=== PATIENT | male | born 1965 | race Caucasian/White ===

== ENCOUNTER 2018-10-15 09:43 | Inpatient (IN) | payer BC, OTHER ==
[~2018-10-15] VITALS: Ht 177.8 cm; Wt 110.7 kg
[2018-10-15] VITALS (20 sets, daily range): BP systolic 91–143; BP diastolic 56–93
--- OUTSIDE RECORDS SUMMARY | 2018-10-15 09:47 | XMS REPORT | Continuity of Care Document ---
Author Author [facility] Organization [facility] Address Unknown Phone Unavailable Allergies Active Description Code Type Severity Reaction Onset Reported/Identified Relationship to Patient Clinical Status Yes No Allergy Information Available [id number] Drug Allergy Unknown N/A 2015 Medications There is no data. 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 Results There is no data. Encounters ACCT No. Visit Date/Time Discharge Status Pt. Type Provider Facility Loc./Unit Complaint [id number] 05/04/2016 20:05:00 05/05/2016 05:55:00 DIS Outpatient JAMESON MCCRACKEN CHIEF DIGITAL OFFICER [facility] SLEEP NARCOLEPSY, EXCESSIVE DAYTIME SLEEPNESS [id number] 02/03/2016 10:05:00 02/03/2016 23:59:59 CLS Outpatient JAMESON MCCRACKEN CHIEF DIGITAL OFFICER [facility] RAD VERTIGO [id number] 03/01/2015 12:05:00 03/01/2015 13:01:00 DIS Outpatient LISA GIRALDO, GENOVEVA Patel [facility] CARD DDD LUMBAR
--- NOTE | 2018-10-15 09:48 | NUR ---
ATTEMPT VAGAL'S BY BEARING DOWN, HOLDING BREATH, AND BLOWING INTO A SYRNIGE. CONTINUES TO BE IN HIGH RATE OF 220.
[2018-10-15] MEDS ORDERED: ADENOSINE 6 MG/2 ML (ADENOCARD) VIAL IV ONE ×4 (09:50→10:30)
--- NOTE | 2018-10-15 09:52 | NUR ---
ADENOSINE 6MG GIVEN RAPID THRU IV PUSH. NO CHANGE IN CONDTION AFTER MED GIVEN.
--- NOTE | 2018-10-15 09:56 | NUR ---
ADENOSINE 12MG IV GIVEN RAPIDLY. NO CHANGE IN VITALS AFTER MED GIVEN.
[2018-10-15] MEDS ORDERED: NS IV 1000 ML 1,000 ML ONE (09:57)
[2018-10-15] MEDS ORDERED: ASPIRIN 81 MG CHEW (CHILDREN'S ASA) PO ONE (10:00)
[2018-10-15] MEDS ORDERED: AMIODARONE (OMNICELL DRIP KIT) 150 MG/3 ML IV ONE (10:06)
[2018-10-15] MEDS ORDERED: AMIODARONE 450 MG/9 ML (CORDARONE) VIAL IV ONE (10:06)
[2018-10-15] MEDS ORDERED: D5W IV SOLUTION (EXCEL) 250 ML IV ONE (10:07)
[2018-10-15] MEDS ORDERED: D5W 100 ML IVPB 100 ML IV ONE (10:07)
[2018-10-15 10:08] LABS: BASOPHILS % (AUTO) 1 % (0-10); EOSINOPHILS # (AUTO) 0.1 10^3/uL (0.0-0.3); EOSINOPHILS % (AUTO) 2 % (0-10); HEMATOCRIT 48 % (40-54); HEMOGLOBIN 17.2 G/DL (13.3-17.7); LYMPHOCYTES % (AUTO) 35 % (12-44); MEAN CORPUSCULAR HEMOGLOBIN 31 PG (25-34); MEAN CORPUSCULAR HGB CONC 36 G/DL (32-36); MEAN CORPUSCULAR VOLUME 85 FL (80-99); MEAN PLATELET VOLUME 10.3 FL (7.4-10.4); MONOCYTES # (AUTO) 0.7 X 10^3 (0.0-1.0); MONOCYTES % (AUTO) 12 % (0-12); NEUTROPHILS % (AUTO) 50 % (42-75); PLATELET COUNT 188 10^3/uL (130-400); RED CELL DISTRIBUTION WIDTH 13.1 % (10.0-14.5); WHITE BLOOD COUNT 5.9 10^3/uL (4.3-11.0)
--- NOTE | 2018-10-15 10:13 | NUR ---
BACK IN ROOM TALKING TO PT.
[2018-10-15] MEDS ORDERED: AMIODARONE INJECTION 450 MG in D5W IV SOLUTION (EXCEL) 250 ML IV SCH ×2 (10:15→13:45)
[2018-10-15] MEDS ORDERED: AMIODARONE FOR BOLUS 150 MG in D5W 100 ML IVPB 100 ML IV ONE (10:15)
[2018-10-15] MEDS ORDERED: NS IV 1000 ML 1,000 ML IV SCH ×3 (10:18→11:25)
--- NOTE | 2018-10-15 10:20 | NUR ---
DR TALKING WITH DR MARCOS ON PHONE AT THIS TIME.
--- NOTE | 2018-10-15 10:21 | NUR ---
DR MARCOS TALKING TO PT AT THIS TIME.
[2018-10-15] MEDS ORDERED: proPOfol 200 MG/20 ML (DIPRIVAN) VIAL IV ONE (10:22)
[2018-10-15 10:23] LABS: PROTHROMBIN TIME PATIENT 12.9 SEC (12.2-14.7)
--- NOTE | 2018-10-15 10:24 | NUR ---
CONCENT SIGNED FOR CONSCIOUS SEDATION AND CARDIOVERSION/DEFIBRILLATION.
--- NOTE | 2018-10-15 10:27 | NUR ---
PROPOFOL 50MG GIVEN IVP BY DR ELLIS.
--- NOTE | 2018-10-15 10:30 | NUR ---
PT STILL AWAKE ET PROPOFOL 25MG IVP GIVEN BY DR ELLIS.
[2018-10-15 10:31] LABS: ALANINE AMINOTRANSFERASE 67 U/L (0-55); ALBUMIN 4.5 GM/DL (3.2-4.5); ALKALINE PHOSPHATASE 89 U/L (40-136); BILIRUBIN,TOTAL 0.9 MG/DL (0.1-1.0); BUN/CREATININE RATIO 11; CALCIUM 9.3 MG/DL (8.5-10.1); CARBON DIOXIDE 23 MMOL/L (21-32); CHLORIDE 104 MMOL/L (98-107); GFR ESTIMATED > 60; GLUCOSE 104 MG/DL (70-105); MAGNESIUM 2.3 MG/DL (1.8-2.4); POTASSIUM 3.6 MMOL/L (3.6-5.0); SODIUM 139 MMOL/L (135-145)
--- NOTE | 2018-10-15 10:32 | NUR ---
PT REMAINS AWAKE. PROPOFOL 50MG IVP GIVEN BY DR ELLIS.
--- NOTE | 2018-10-15 10:33 | NUR ---
CARDIOVERSTION WITH SYNC AT 120J. NO CHANGE IN PULSE.
--- NOTE | 2018-10-15 10:35 | NUR ---
ZOLL PADS CHANGED. CARDIOVERSION WITH SYNC AT 200J GIVEN. NO CHANGE IN VITALS.
[2018-10-15 10:37] LABS: MYOGLOBIN SERUM 49.6 NG/ML (10.0-92.0)
--- NOTE | 2018-10-15 10:39 | NUR ---
CARDIOVERSION WITH SYNC AT 200J GIVEN. NO CHANGE IN PULSE. PULSE REMAINS 203 AND SVT ET RULE OUT VTACH.
--- NOTE | 2018-10-15 10:41 | NUR ---
BP 84/[address] AWARE.
--- NOTE | 2018-10-15 10:42 | NUR ---
PRESSURE BAG TO FLUIDS.
[2018-10-15] MEDS ORDERED: KETAMINE HCL 100 MG/ML 5 ML VIAL ONE (10:43)
[2018-10-15] MEDS ORDERED: ESMOLOL DRIP PREMIX 250 ML IV SCH ×2 (10:45→12:30)
[2018-10-15] MEDS ORDERED: KETAMINE HCL 100 MG/ML 5 ML VIAL IM ONE (10:45)
--- NOTE | 2018-10-15 10:47 | NUR ---
PT ALERT ET AWAKE AND TALKING. PULSE REMAINS 206 ET BP 94/69.
[2018-10-15] MEDS ORDERED: ONDANSETRON 4 MG/2 ML (SDV) Z0FRAN ONE (10:53)
--- NOTE | 2018-10-15 10:53 | NUR ---
LIDOCAINE 150MG IV GIVEN PER DR MARCOS ORDER.
--- NOTE | 2018-10-15 10:54 | NUR ---
CARDIOVESION WITH SYNC AT 200J GIVEN.
--- NOTE | 2018-10-15 10:56 | NUR ---
PT CYANOTIC. RT GIVING OXYGEN VIA BVM.
--- NOTE | 2018-10-15 11:01 | NUR ---
PT REMAINS SEDATED. BEING BAGGED VIA BVM AT THIS TIME. DR MARCOS AND CALEB DISCUSSING PT.
--- NOTE | 2018-10-15 11:02 | NUR ---
1101 ESMOLOL 50MG BOLUS GIVEN OUT THE ESMOLOL DRIP BAG.
--- NOTE | 2018-10-15 11:03 | NUR ---
ESMOLOL DRIP AT 33ML/HR 50 MCG/KG/ MIN STARTED.
--- NOTE | 2018-10-15 11:08 | NUR ---
BROUGHT INTO ROOM.
--- NOTE | 2018-10-15 11:10 | NUR ---
Contacted , accompanied her to bedside , spent time with her in consult room, offered support and prayer.
--- NOTE | 2018-10-15 11:11 | NUR ---
ETOMIDATE 20MG IV GIVEN.
--- NOTE | 2018-10-15 11:11 | NUR ---
PULSE OX 91% WITH BMV. DR ELLIS IN ROOM TO INTUBATE.
--- NOTE | 2018-10-15 11:12 | NUR ---
SUCCINYLCHOLINE 100MG IV GIVEN IN PREP OF INTUBATION.
--- NOTE | 2018-10-15 11:14 | NUR ---
VERSED 2.5MG AND FENTENLY 50MCG GIVEN PER DR ELLIS VERBAL ORDER.
--- NOTE | 2018-10-15 11:15 | NUR ---
POSITIVE COLOR CHANGE IN TUBE AFTER ET TUBE PLACED. RADIOLOGY CONTACTED FOR X-RAY.
--- NOTE | 2018-10-15 11:18 | NUR ---
AMIODORONE AND ESMOLOL STOPPED PER DR GRAHAM. DR BRANTLEY BEING CONTACTED. PULSE OX 71% TUBED, END TITAL 19, PULSE 163, BP 72/35. DR ELLIS IN ROOM ET GIVING ORDERS FOR ALL.
--- NOTE | 2018-10-15 11:21 | NUR ---
DR BRANTLEY IN ROOM AT THIS TIME TALKING WITH CALEB.
[2018-10-15] MEDS ORDERED: NS (IVPB) 250 ML ONE (11:22)
[2018-10-15] MEDS ORDERED: NOREPINEPHRINE 4 MG/4 ML (LEVOPHED) AMP IV ONE (11:22)
--- NOTE | 2018-10-15 11:25 | NUR ---
LEVOPHED STARTED AT 5MCG/MIN OR 19.1 ML/HR
[2018-10-15] MEDS ORDERED: DEXMEDETOMIDINE 200 MCG/2 ML (PRECEDEX) VIAL IV ONE (11:29)
[2018-10-15] MEDS ORDERED: NS (IVPB) 50 ML ONE (11:29)
--- NOTE | 2018-10-15 11:30 | NUR ---
PULSE OX 79% INTUBATED, BP 86/57. DR ELLIS AND DR BRANTLEY IN ROOM AT THIS TIME.
--- NOTE | 2018-10-15 11:30 | NUR ---
16F NG PLACED BY CORNELIO Brunner RN. POSITIVE AIR BOLUS HEARD.
--- NOTE | 2018-10-15 11:31 | NUR ---
RT SUCTIONING AT THIS TIME.
--- NOTE | 2018-10-15 11:31 | NUR ---
BP 100/76 PULSE OX 79%. BOTH DR'S IN ROOM AT THIS TIME. FLUID CHANGED TO SLOW DRIP.
[2018-10-15] MEDS ORDERED: NS (IVPB) 100 ML ONE (11:37)
[2018-10-15] MEDS ORDERED: DIGOXIN 0.25 MG/ML (LANOXIN) 2 ML AMP ONE (11:37)
[2018-10-15] MEDS ORDERED: DILTIAZEM 125 MG/25 ML IV (CARDIZEM) IV ONE (11:39)
[2018-10-15] MEDS ORDERED: FUROSEMIDE 40 MG/4 ML INJ (LASIX) ONE (11:41)
--- NOTE | 2018-10-15 11:41 | Diagnostic Imaging Report ---
INDICATION: Evaluate tube placement. FINDINGS: The endotracheal tube is in satisfactory position. There is cardiomegaly. There is bilateral airspace disease. There is no pleural effusion or pneumothorax. The mediastinum is unremarkable. IMPRESSION: Diffuse bilateral airspace disease. Cardiomegaly. Endotracheal tube in satisfactory position Dictated by: Dictated on workstation # [id number]
[2018-10-15] MEDS ORDERED: PROPOFOL DRIP (ICU) 100 ML IV ONE ×3 (11:44→21:48)
[2018-10-15] MEDS ORDERED: FUROSEMIDE 40 MG/4 ML INJ (LASIX) IVP ONE (11:45)
[2018-10-15] MEDS ORDERED: DIGOXIN 0.25 MG/ML (LANOXIN) 2 ML AMP IV ONE (11:45)
--- NOTE | 2018-10-15 11:45 | NUR ---
LEVOPHED STOPPED PER DR ORDER.
--- NOTE | 2018-10-15 11:45 | NUR ---
CARDIZEM STARTED AT 5MCG/HR. Addendum: 10/15/18 at 1245 by SHALINI ESMOLOL STOPPED PER DR GRAHAM
[2018-10-15] MEDS: DEXMEDETOMIDINE INJECTION 200 MCG in NS (IVPB) 50 ML IV SCH ×2 (11:47→13:45)
--- NOTE | 2018-10-15 11:47 | NUR ---
PARESIDEX STARTED AT 41.6ML/HR.
--- NOTE | 2018-10-15 11:49 | NUR ---
VERSED 2.5MG AND FENTENLY 50MCG GIVEN IV PER DR ORDER.
--- NOTE | 2018-10-15 11:49 | NUR ---
PROPOFOL 20MCG/HR STARTED.
[2018-10-15 11:52] LABS: BILIRUBIN,URINE NEGATIVE (NEGATIVE); CLARITY,URINE CLEAR; COLOR,URINE YELLOW; GLUCOSE, URINE (UA) NEGATIVE (NEGATIVE); KETONES,URINE NEGATIVE (NEGATIVE); LEUKOCYTE ESTERASE ,URINE NEGATIVE (NEGATIVE); NITRITE,URINE NEGATIVE (NEGATIVE); PH,URINE 6 (5-9); PROTEIN,URINE 2+ (NEGATIVE); UROBILINOGEN,URINE NORMAL (NORMAL)
--- NOTE | 2018-10-15 11:57 | NUR ---
91/59 HR 172, SAT 87%.
--- NOTE | 2018-10-15 11:57 | NUR ---
LEVOPHED 5CG/MIN RESTARTED PER DR ORDER.
[2018-10-15 12:01] LABS: ABG BASE EXCESS -6.3 MMOL/L (-2.5-2.5); ABG OXYGEN SATURATION 84 % (94-100); ABG PCO2 52 MMHG (35-45); ABG PO2 59 MMHG (79-93)
[2018-10-15 12:03] LABS: AMPHETAMINE SCREEN, URINE NEGATIVE (NEGATIVE); BARBITURATE SCREEN URINE NEGATIVE (NEGATIVE); BENZODIAZEPINES SCREEN URINE NEGATIVE (NEGATIVE); CANNABINOID SCREEN, URINE NEGATIVE (NEGATIVE); COCAINE SCREEN URINE NEGATIVE (NEGATIVE); METHADONE STAT NEGATIVE (NEGATIVE); METHAMPHETAMINE SCREEN URINE S NEGATIVE (NEGATIVE); OPIATE SCREEN URINE NEGATIVE (NEGATIVE); OXYCODONE STAT NEGATIVE (NEGATIVE); PROPOXYPHENE STAT NEGATIVE (NEGATIVE); TRICYCLIC ANTIDEPRESSANTS SCRE NEGATIVE (NEGATIVE)
--- NOTE | 2018-10-15 12:03 | NUR ---
AMIODORONE DRIP STARTED AT 33ML/HR.
[2018-10-15 12:04] LABS: ABG PH 7.21 (7.37-7.43); ALLENS TEST YES-POS
--- NOTE | 2018-10-15 12:04 | NUR ---
DR ELLIS IN ROOM STARTING CENTRAL LINE AT THIS TIME. DR BRANTLEY IN ROOM AT THIS TIME ALSO.
[2018-10-15 12:05] LABS: INSPIRED O2 SEE SPECIMEN COMMENT; PATIENT TEMP 97.9; VENTILATOR NO
[2018-10-15 12:07] LABS: BACTERIA,URINE NEGATIVE /HPF
--- NOTE | 2018-10-15 12:07 | NUR ---
HR HAS CONVERTED TO SINUS AT 83, SAT 89% ET 73/46
--- NOTE | 2018-10-15 12:07 | NUR ---
DR IGNACIO IN ROOM AT THIS TIME.
--- NOTE | 2018-10-15 12:08 | NUR ---
LEVOPHED INCREASED TO 10MCG
--- NOTE | 2018-10-15 12:09 | NUR ---
2 AMPS OF SODIUM BICARB GIVEN PER DR BRANTLEY STANDING ORDER.
--- NOTE | 2018-10-15 12:25 | NUR ---
DR TOMLINSON HERE.
[2018-10-15] MEDS ORDERED: DILTIAZEM INJECTION 125 MG in NS (IVPB) 100 ML IV SCH (12:30)
[2018-10-15] MEDS ORDERED: PROPOFOL INJECTION 50 ML IV SCH (12:30)
[2018-10-15] MEDS ORDERED: DEXMEDETOMIDINE INJECTION 200 MCG in NS (IVPB) 50 ML IV SCH ×2 (12:30→13:45)
[2018-10-15] MEDS ORDERED: PROPOFOL DRIP (ICU) 100 ML IV SCH (12:30)
--- NOTE | 2018-10-15 12:30 | ED Chest Pain ---
General Chief Complaint: Cardiac/General Problems Stated Complaint: CHEST PAIN Nursing Triage Note: ARRIVED VIA AMB FROM WORK. 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 Nursing Sepsis Screen: No Definite Risk Source: patient Exam Limitations: no limitations History of Present Illness Date Seen by Provider: Oct 15, 2018 Time Seen by Provider: 09:48 Initial Comments Here with report of palpitations and central chest pain that started approximately 20 minutes prior to arrival at about 0930. He felt the acute onset of the rapid heart rate and talk to his coworker who brought him here to the emergency department. He reports that several years ago he had similar episode in which she had tachycardia of the lower part of his heart. He states that they had to shock him a few times and that did not work and he ended up on medicines. He had a failed ablation at that time and it was in [place]. He's had a few episodes in the interim but it usually resolves on its own. Today he has persistence of symptoms. Denies nausea, vomiting, weakness or breathing problems. 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 SERVICE TECHNICIAN: No Associated Symptoms: No abdominal pain, No back pain, No diaphoresis, No fever/ chills, No nausea/vomiting; shortness of breath Allergies and Home Medications Allergies Coded Allergies: No Allergy Information Available (Unverified , 02/03/16) Home Medications Diltiazem HCl 240 Mg Cap.er.24h, 240 MG PO DAILY, (Reported) Pantoprazole Sodium 40 Mg Tablet.dr, 40 MG PO DAILY, (Reported) Patient Home Medication List Home Medication List Reviewed: Yes Review of Systems Review of Systems Constitutional: see HPI EENTM: No Symptoms Reported Respiratory: See HPI Cardiovascular: See HPI, Chest Pain, Palpitations; Denies Syncope Gastrointestinal: No Symptoms Reported Genitourinary: No Symptoms Reported Musculoskeletal: no symptoms reported Skin: no symptoms reported All Other Systems Reviewed Negative Unless Noted: Yes Past Lverxbq-Mirofx-Xzsdag Hx Past Med/Social Hx: Reviewed Nursing Past Med/Soc Hx Patient Social History Alcohol Use: Occasionally Uses Recreational Drug Use: Yes Drug of Choice: POT Smoking Status: Never a Smoker Recent Foreign Travel: No Contact w/Someone Who Travel: No Recent Infectious Disease Expo: No Recent Hopitalizations: No Past Medical History Surgeries: Yes Appendectomy, Gallbladder Respiratory: No Cardiac: Yes (SVT) Hypertension Neurological: No Concussion Genitourinary: No Gastrointestinal: No Endocrine: No HEENT: No Cancer: No Psychosocial: No Integumentary: No Family Medical History Reviewed Nursing Family Hx No Pertinent Family Hx Physical Exam Vital Signs Vital Signs - First Documented 10/15/18 10/15/18 09:45 10:05 Temp 98.0 Pulse 213 Resp 18 B/P (MAP) 158/107 (124) Pulse Ox 94 O2 Delivery Room Air O2 Flow Rate 2.00 Capillary Refill : Less Than 3 Seconds Height, Weight, BMI Height: 5'10.00" Weight: 245lbs. oz. 111.051656nz; BMI Method:Stated General Appearance: No Apparent Distress, WD/WN HEENT: PERRL/EOMI, Pharynx Normal Neck: Non Tender, Supple Respiratory: Lungs Clear, Normal Breath Sounds Cardiovascular: No Murmur, Tachycardia Gastrointestinal: Non Tender, Soft Extremity: Normal Range of Motion, Non Tender Neurologic/Psychiatric: Alert, Oriented x3 Skin: Normal Color, Warm/Dry Procedures/Interventions Lumen: triple Central Line Procedure: betadine prep, sterile drapes applied, sterile dressing applied Position: internal jugular (R) Complications: none Post Position: sutured, good blood return, position confirmed w/ CXR Central line placed via ultrasound guidance times one stick with no complications. Seldinger technique used. Date of ETT Placement: Oct 15, 2018 Time of ETT Placement: 1115 Tube Size: 7.50 Medications: Etomidate, Succinylcholine Positive End Tide CO2: Yes Breath Sounds after Intubation: bilateral-equal Intubation Complications: no complications Post Intubation Xray: Yes Intubated due to underlying conditions with declining O2 saturation secondary to the tach that is unstable and resistant to cardioversion. Airway is deep. Placed via video scope without much difficulty. O2 sat slowly edelmira afterwards. Verified by breath sounds and positive end-tidal CO2 as well as x-ray. Critical Care Note Critical Care Start Time: 09:48 Stop Time: 12:30 Total Time (minutes) 90 Progress/Results/Core Measures Results/Orders Lab Results Laboratory Tests Test 10/15/18 09:54 10/15/18 11:06 3/12/19 11:55 Range/Units White Blood Count 5.9 4.3-11.0 10^3/uL Red Blood Count 5.63 4.35-5.85 10^6/uL Hemoglobin 17.2 13.3-17.7 G/DL Hematocrit 48 40-54 % Mean Corpuscular Volume 85 80-99 FL Mean Corpuscular Hemoglobin 31 25-34 PG Mean Corpuscular Hemoglobin Concent 36 32-36 G/DL Red Cell Distribution Width 13.1 10.0-14.5 % Platelet Count 188 130-400 10^3/uL Mean Platelet Volume 10.3 7.4-10.4 FL Neutrophils (%) (Auto) 50 42-75 % Lymphocytes (%) (Auto) 35 12-44 % Monocytes (%) (Auto) 12 0-12 % Eosinophils (%) (Auto) 2 0-10 % Basophils (%) (Auto) 1 0-10 % Neutrophils # (Auto) 3.0 1.8-7.8 X 10^3 Lymphocytes # (Auto) 2.0 1.0-4.0 X 10^3 Monocytes # (Auto) 0.7 0.0-1.0 X 10^3 Eosinophils # (Auto) 0.1 0.0-0.3 10^3/uL Basophils # (Auto) 0.0 0.0-0.1 10^3/uL Prothrombin Time 12.9 12.2-14.7 SEC INR Comment 1.0 0.8-1.4 Activated Partial Thromboplast Time 29 24-35 SEC Sodium Level 139 135-145 MMOL/L Potassium Level 3.6 3.6-5.0 MMOL/L Chloride Level 104 98-107 MMOL/L Carbon Dioxide Level 23 21-32 MMOL/L Anion Gap 12 5-14 MMOL/L Blood Urea Nitrogen 12 7-18 MG/DL Creatinine 1.10 0.60-1.30 MG/DL Estimat Glomerular Filtration Rate > 60 BUN/Creatinine Ratio 11 Glucose Level 104 70-105 MG/DL Calcium Level 9.3 8.5-10.1 MG/DL Corrected Calcium 8.9 8.5-10.1 MG/DL Magnesium Level 2.3 1.8-2.4 MG/DL Total Bilirubin 0.9 0.1-1.0 MG/DL Aspartate Amino Transf (AST/SGOT) 40 H 5-34 U/L Alanine Aminotransferase (ALT/SGPT) 67 H 0-55 U/L Alkaline Phosphatase 89 40-136 U/L Myoglobin 49.6 10.0-92.0 NG/ML Troponin I < 0.028 <0.028 NG/ML Total Protein 8.0 6.4-8.2 GM/DL Albumin 4.5 3.2-4.5 GM/DL Urine Color YELLOW Urine Clarity CLEAR Urine pH 6 5-9 Urine Specific [place] 1.010 L 1.016-1.022 Urine Protein 2+ H NEGATIVE Urine Glucose (UA) NEGATIVE NEGATIVE Urine Ketones NEGATIVE NEGATIVE Urine Nitrite NEGATIVE NEGATIVE Urine Bilirubin NEGATIVE NEGATIVE Urine Urobilinogen NORMAL NORMAL MG/DL Urine Leukocyte Esterase NEGATIVE NEGATIVE Urine RBC (Auto) NEGATIVE NEGATIVE Urine RBC NONE /HPF Urine WBC NONE /HPF Urine Squamous Epithelial Cells NONE /HPF Urine Crystals NONE /LPF Urine Bacteria NEGATIVE /HPF Urine Casts NONE /LPF Urine Mucus NEGATIVE /LPF Urine Culture Indicated NO Urine Opiates Screen NEGATIVE NEGATIVE Urine Oxycodone Screen NEGATIVE NEGATIVE Urine Methadone Screen NEGATIVE NEGATIVE Urine Propoxyphene Screen NEGATIVE NEGATIVE Urine Barbiturates Screen NEGATIVE NEGATIVE Ur Tricyclic Antidepressants Screen NEGATIVE NEGATIVE Urine Phencyclidine Screen NEGATIVE NEGATIVE Urine Amphetamines Screen NEGATIVE NEGATIVE Urine Methamphetamines Screen NEGATIVE NEGATIVE Urine Benzodiazepines Screen NEGATIVE NEGATIVE Urine Cocaine Screen NEGATIVE NEGATIVE Urine Cannabinoids Screen NEGATIVE NEGATIVE Blood Gas Puncture Site RT RAD Blood Gas Patient Temperature 97.9 Arterial Blood pH 7.21 *L 7.37-7.43 Arterial Blood Partial Pressure CO2 52 H 35-45 MMHG Arterial Blood Partial Pressure O2 59 L 79-93 MMHG Arterial Blood HCO3 20 L 23-27 MMOL/L Arterial Blood Total CO2 22.0 21.0-31.0 MMOL/L Arterial Blood Oxygen Saturation 84 L 94-100 % Arterial Blood Base Excess -6.3 L -2.5-2.5 MMOL/L Truong Test YES-POS Blood Gas Ventilator Setting NO Blood Gas Inspired Oxygen SEE SPECIMEN COMMENT My Orders Orders - SHERRI ELLIS MD Ekg Tracing (10/15/18 09:45) Cbc With Automated Diff (10/15/18 09:48) Magnesium (10/15/18 09:48) Chest 1 View, Ap/Pa Only (10/15/18 09:48) Cardiac Profile 1 (10/15/18 09:48) Comprehensive Metabolic Panel (10/15/18 09:48) Myoglobin Serum (10/15/18 09:48) Protime With Inr (10/15/18 09:48) Partial Thromboplastin Time (10/15/18 09:48) O2 (10/15/18 09:48) Monitor-Rhythm Ecg Trace Only (10/15/18 09:48) Lipid Panel (10/16/18 06:00) Aspirin Chewable Tablet (Baby Aspirin Ch (10/15/18 10:00) Saline Lock/Iv-Start (10/15/18 09:48) Adenosine Injection (Adenocard Injection (10/15/18 09:50) Adenosine Injection (Adenocard Injection (10/15/18 09:52) Ns Iv 1000 Ml (Sodium Chloride 0.9%) (10/15/18 09:57) Amiodarone For Bolus (Cordarone Bolus) (10/15/18 10:15) Amiodarone Injection (Cordarone Injectio (10/15/18 10:15) Amiodarone For Bolus (Cordarone Bolus) (10/15/18 10:06) Amiodarone Injection (Cordarone Injectio (10/15/18 10:06) D5w Iv Solution ([place]) (Dextrose 5% Federico (10/15/18 10:07) D5w 100 Ml Ivpb (Dextrose 5% Water Iv So (10/15/18 10:07) Adenosine Injection (Adenocard Injection (10/15/18 10:30) Adenosine Injection (Adenocard Injection (10/15/18 10:30) Saline Lock/Iv-Start (10/15/18 10:18) Ns Iv 1000 Ml (Sodium Chloride 0.9%) (10/15/18 10:18) Propofol Injection (Diprivan Injection) (10/15/18 10:22) Saline Lock/Iv-Start (10/15/18 10:36) Esmolol Drip Premix (Brevibloc Drip [place] (10/15/18 10:45) Ketamine Injection (Ketalar Injection) (10/15/18 10:45) Saline Lock/Iv-Start (10/15/18 10:43) Ns Iv 1000 Ml (Sodium Chloride 0.9%) (10/15/18 10:43) Ketamine Injection (Ketalar Injection) (10/15/18 10:43) Ondansetron Injection (Zofran Injectio (10/15/18 10:53) Ns (Ivpb) (Sodium Chloride 0.9%) (10/15/18 11:22) Norepinephrine (Levophed) (10/15/18 11:22) Saline Lock/Iv-Start (10/15/18 11:25) Ns Iv 1000 Ml (Sodium Chloride 0.9%) (10/15/18 11:25) Dexmedetomidine Injection (Precedex Inje (10/15/18 11:29) Ns (Ivpb) (Sodium Chloride 0.9% Ivpb Bag (10/15/18 11:29) Furosemide Injection (Lasix Injection) (10/15/18 11:45) Digoxin Injection (Lanoxin Injection) (10/15/18 11:45) Drug Screen Stat (Urine) (10/15/18 11:41) Ua Culture If Indicated (10/15/18 11:44) Propofol Drip (Icu) (Diprivan Drip (Icu) (10/15/18 11:44) Chest 1 View, Ap/Pa Only (10/15/18 12:24) Propofol Drip (10/15/18 12:30) Propofol Drip (Ed Only) 50ml (10/15/18 12:30) Sedation Communication Q48H (10/15/18 12:25) Esmolol Drip Premix (Brevibloc Drip [place] (10/15/18 12:30) Precedex Drip 200mcg/50ml (10/15/18 12:30) Cardizem Drip (10/15/18 12:30) Medications Given in ED Current Medications Medications Dose Ordered Sig/Allison Route Start Time Stop Time Status Last Admin Dose Admin Adenosine 6 mg ONCE ONCE IV 10/15/18 10:30 10/15/18 10:31 DC 10/15/18 09:52 6 MG Adenosine 12 mg ONCE ONCE IV 10/15/18 10:30 10/15/18 10:31 DC 10/15/18 09:52 12 MG Amiodarone HCl 150 mg/Dextrose 103 ml @ 600 mls/hr ONCE ONCE IV 10/15/18 10:15 10/15/18 10:25 DC 10/15/18 10:11 600 MLS/HR Aspirin 324 mg ONCE ONCE PO 10/15/18 10:00 10/15/18 10:01 DC 10/15/18 10:18 324 MG Digoxin 0.25 mg ONCE ONCE IV 10/15/18 11:45 10/15/18 11:46 DC 10/15/18 11:41 0.25 MG Furosemide 40 mg ONCE ONCE IVP 10/15/18 11:45 10/15/18 11:46 DC 10/15/18 11:40 40 MG Ketamine HCl PHARMACY TO DOSE ONCE ONCE IM 10/15/18 10:45 10/15/18 10:46 DC 10/15/18 10:52 150 MG Vital Signs/I&O 10/15/18 10/15/18 09:45 10:05 Temp 98.0 Pulse 213 Resp 18 B/P (MAP) 158/107 (124) Pulse Ox 94 O2 Delivery Room Air Nasal Cannula O2 Flow Rate 2.00 Blood Pressure Mean: 124 Progress Progress Note : Progress Note Seen and evaluated on arrival. Wide-complex tachycardia noted on monitor. IV, labs, EKG and chest x-ray ordered. ASA 324 mg by mouth ordered. Patient does have wide-complex tachycardia and we attempted adenosine 6 mg IV which failed and 12 mg IV which failed as well. This was at 0952 and 0958. Normal saline 1 L bolus ordered. 0959: I did discuss the case with Dr. Romero and he will come to the emergency department for evaluation of the patient as this appears to be ventricular tachycardia. Patient's blood pressure remains elevated and he is currently in no distress. Due to failure of adenosine, amiodarone 150 mg IV bolus ordered. I did discuss the case with Dr. Sinclair as well. 1026: We will do a synchronized cardioversion due to failure of meds and persistence of the wide- complex tachycardia which appears to be ventricular in origin. 1032: Patient has signed consent for conscious sedation and synchronized cardioversion. A total of 120 mg of propofol was given and a total of 3 boluses of 50, 20 and 50 mg respectively. Ultimately sedation was achieved. Synchronized cardioversion attempted at 120 J which failed. 1035: Repeat synchronized cardioversion at 200 J which failed. 103 9 repeat cardioversion at 200 J failed. Blood pressure noted to be declining. IV fluids continued. Third IV site initiated. We will attempt 1 more synchronized cardioversion but will use lidocaine prior to cardioversion. Due to patient's hypotension, we will avoid further propofol at this point. Ketamine will be used instead. Ketamine 150 mg IV was given and 150 mg of lidocaine was given. 1054 synchronized cardioversion at 200 J was attempted and failed. Patient very resistant to attempts at converting out of ventricular tachycardia and is becoming increasingly unstable with respect to blood pressure. In an attempt to lower heart rate we will initiate asthma wall with bolus of 500 mcg/kg IV which was calculated at 50 mg bolus which was given. Esmolol drip initiated at 1103. Patient becoming increasingly hypotensive and O2 saturations declining. Ultimately elected intubation to improve stability. This was done at 1115. Post chest x-ray and intubation shows tube in good position Dr. Moser called and to room at 1130. Dr. Romero still in room. I have discussed the concerns with the patient's . We have evaluated for transfer but patient is not stable enough for transfer and whether is limiting flight. Dr. Moser managing sedation with Precedex and propofol. 1158: We have tried variety of medication changes and vent settings to improve the patient's O2 saturations which have increased to 87%. Ultimately we elected for central line which I will place at this time. has been informed of situation. Levophed drip has been initiated to improve blood pressure 1207: Patient converted during central line procedure to sinus rhythm. 1215: Patient remains in sinus rhythm. Dr. Myrick at bedside and bedside report was given to her by me, Dr. Moser and Dr. Romero as the care team. 1230: Chest x-ray evaluation after central line shows central line in good position. NG tube is just into the stomach and advancement was ordered for further seating. Patient will go to ICU and further management will be via Dr. Moser, Dr. Romero and Dr. Myrick. I have updated on situation. Patient remains critical but stable with improving blood pressures and heart rate in the 60s. Repeat EKG has been done and shows sinus rhythm of 58. O2 saturations have improved into the mid to upper 90s. Vent settings per Dr. Moser. Dr. Sinclair is here now for electrophysiology consult and is talking with the . Admit, inpatient status to ICU, critical condition. Initial ECG Impression Date: Oct 15, 2018 Initial ECG Impression Time: 09:47 Initial ECG Rate: 208 Initial ECG Rhythm: V.Tach Comment Ventricular tachycardia with rate of 209. No previous available for comparison. Interpreted by me. Discussed with quality technician EKG #1: EKG Time: 11:32 Rate: 183 Rhythm: V.Tach Comment Ventricular tachycardia continues with rate of 183. Interpreted by me and discussed with quality technician. Essentially unchanged from previous earlier. EKG #2: EKG Time: 12:30 Rate: 58 Rhythm: Normal Sinus Comment Sinus rhythm with normal axis. No evidence of ST elevation [place]. Change from previous which was V. tach. Interpreted by me. Diagnostic Imaging Diagonstic Imaging: Xray Plain Films/CT/US/NM/MRI: chest Comments NAME: AISHA AVINA Mingly REC#: [id number] PT STATUS: REG ER : 1965 PHYSICIAN: SHERRI ELLIS MD ADMIT DATE: 10/15/18/ER Signed Date of Exam: 10/15/18 CHEST 1 VIEW, AP/PA ONLY INDICATION: Evaluate tube placement. FINDINGS: The endotracheal tube is in satisfactory position. There is cardiomegaly. There is bilateral airspace disease. There is no pleural effusion or pneumothorax. The mediastinum is unremarkable. IMPRESSION: Diffuse bilateral airspace disease. Cardiomegaly. Endotracheal tube in satisfactory position Dictated by: Dictated on workstation # [id number] Dict: 10/15/18 1134 Trans: 10/15/18 1151 Interpreted by: MONAE GAMEZ MD Electronically signed by: MONAE GAMEZ MD 10/15/18 1151 Reviewed: Reviewed by Me Diagonstic Imaging: Xray Plain Films/CT/US/NM/MRI: chest Comments NAME: AISHA AVINA Mingly REC#: [id number] PT STATUS: ADM IN : 1965 PHYSICIAN: SHERRI ELLIS MD ADMIT DATE: 10/15/18/ICU Signed Date of Exam: 10/15/18 CHEST 1 VIEW, AP/PA ONLY INDICATION: Central line placement and NG tube placement. TIME OF EXAM: 12:19 p.m. COMPARISON: Correlation is made with prior study earlier the same day. FINDINGS: ET tube has tip in good position above the nita. A right IJ line has its tip overlying SVC. An NG tube appears to pass into the stomach. Bilateral pulmonary infiltrates show some slight improvement since the earlier radiograph. External pacer overlies the left upper chest. There is no pneumothorax seen. IMPRESSION: 1. NG tube has a tip passing in the stomach; however, the proximal side port is at the GE junction. NG tube could be advanced. 2. Slight improvement in bilateral infiltrates since earlier radiograph. Dictated by: Dictated on workstation # [id number] Dict: 10/15/18 1229 Trans: 10/15/18 1749 Interpreted by: TAIWO JOINER MD Electronically signed by: TAIWO JOINER MD 10/15/18 1749 Reviewed: Reviewed by Me Departure Communication (Admissions) Time/Spoke to Admitting Phy: 11:38 Time/Spoke to Consulting Phy: 09:59 Impression Primary Impression: Sustained ventricular tachycardia Additional Impressions: Cardiogenic shock Acute respiratory failure Qualified Codes: J96.01 - Acute respiratory failure with hypoxia Disposition: 09 ADMITTED INPATIENT Condition: Critical Admissions Decision to Admit Reason: Admit from ER (General) Decision to Admit/Date: Oct 15, 2018 Time/Decision to Admit Time: 09:59 Departure-Patient Inst. Referrals: DODIE MANN DO (PCP) Primary Care Physician SHERRI ELLIS MD Oct 15, 2018 12:30
--- NOTE | 2018-10-15 12:35 | Diagnostic Imaging Report ---
INDICATION: Central line placement and NG tube placement. TIME OF EXAM: 12:19 p.m. COMPARISON: Correlation is made with prior study earlier the same day. FINDINGS: ET tube has tip in good position above the nita. A right IJ line has its tip overlying SVC. An NG tube appears to pass into the stomach. Bilateral pulmonary infiltrates show some slight improvement since the earlier radiograph. External pacer overlies the left upper chest. There is no pneumothorax seen. IMPRESSION: 1. NG tube has a tip passing in the stomach; however, the proximal side port is at the GE junction. NG tube could be advanced. 2. Slight improvement in bilateral infiltrates since earlier radiograph. Dictated by: Dictated on workstation # [id number]
--- NOTE | 2018-10-15 12:39 | NUR ---
HR 58, PULSE OX 98% ON VENT, BP 119/90
--- NOTE | 2018-10-15 12:41 | History & Physical-Hospitalist ---
History of Present Illness HPI/Chief Complaint Pt is a 52yoCM with a PMH of sustained v-tach who presented to the ER due to chest tightness and pain. He is unable to provide any history as he is sedated and intubated. All history from records and bedside report from ED Physician. He reported had a similar episode of v-tach that was refractory to standard treatment and was cared for by a crematorium operator in [place]. Today he presented and was found to have a heart rate of 240 with a wide complex rhythm with a pulse. He was given escalating doses of adenosine without improvement. he was hypertensive on arrival as well. He was shocked a total of 4 times to attempt to convert him but these were unsuccessful. He was then given amiodarone bolus and started on a gtt. He was treated with an esmolol bolus as well. These were unsuccessful. Dr Romero of cardiology services came to bedside. He was given lidocaine as well. He then became hypotensive and was treated with 3L of IVF. Following fluid resuscitation he developed frothy sputum and hypoxia and was emergently intubated. He remained hypotensive with intubation and his sedation was switched from propofol to precedex. He was started on a cardizem gtt as well. When I arrived to bedside Dr Trimble was placing a central line and Dr Moser was at bedside as well. Shortly after central line placement his rhythm converted to sinus in the 60s. Currently he is on levophed and cardizem gtt for pressure and rate control. He is intubated with a PEEP of 14 to maintain oxygen saturations. He is to be transferred to the ICU. Exam Limitations: clinical condition Date Seen 10/15/18 Time Seen by a Provider: 12:10 Attending Physician Kal Myrick PCP Gordon Parra DO Referring Physician Date of Admission Home Medications & Allergies Home Medications Reviewed patient Home Medication Reconciliation performed by pharmacy medication reconciliations distribution field technician and/or nursing. Patients Allergies have been reviewed. Allergies Allergies Coded Allergies No Allergy Information Available (Unverified02/03/16) Past Hoqxrmc-Mkuyex-Nunezz Hx Past Med/Social Hx: Reviewed Nursing Past Med/Soc Hx Patient Social History Marrital Status: Alcohol Use: Occasionally Uses Recreational Drug Use: Yes Drug of Choice: POT Smoking Status: Never a Smoker Recent Foreign Travel: No Contact w/other who traveled: No Recent Hopitalizations: No Recent Infectious Disease Expo: No Past Medical History Surgeries: Appendectomy, Gallbladder Cardiac: Atrial Fibrillation, Hypertension, Irregular Heartbeat (v-tach) Neurological: Concussion Family History Reviewed Nursing Family Hx No Pertinent Family Hx Review of Systems ROS-Unable to Obtain: intubated Constitutional: see HPI Physical Exam Physical Exam Vital Signs Vital Signs - First Documented 10/15/18 10/15/18 09:45 10:05 Temp 98.0 Pulse 213 Resp 18 B/P (MAP) 158/107 (124) Pulse Ox 94 O2 Delivery Room Air O2 Flow Rate 2.00 Capillary Refill : Less Than 3 Seconds Height, Weight, BMI Height: 5'10.00" Weight: 245lbs. oz. 111.117573ub; BMI Method:Stated General Appearance: Obese, Other (intubated/sedated) HEENT: PERRL/EOMI, Moist Mucous Membranes; No Scleral Icterus (L), No Scleral Icterus (R) Neck: JVD; No Thyromegaly; Other (central line in place) Respiratory: Rhonci; No Wheezing; Other (on vent) Cardiovascular: Regular Rate, Rhythm, No Edema, No Murmur, Normal Peripheral Pulses Gastrointestinal: Normal Bowel Sounds, Non Tender, Soft, Other (small 1-2cm scar on left upper abd) Extremity: Normal Capillary Refill, Normal Inspection, No Pedal Edema Neurologic/Psychiatric: Other (sedated on vent) Skin: Normal Color, Warm/Dry Results Results/Procedures Labs Laboratory Tests 10/15/18 09:54 Patient resulted labs reviewed. Imaging: Reviewed Imaging Report Assessment/Plan Admission Diagnosis Sustained V tach Acute Respiratory Failure Admission Status: Inpatient Order (span 2 midnights) Reason for Inpatient Admission: on vent nad pressors Diagnosis/Problems Diagnosis/Problems (1) Sustained ventricular tachycardia Assessment & Plan: Failed multiple attempts at conversion in the ER Converted during central line placement Currently on cardizem and levophed Cardiology consulted, appreciate recs Will recheck all electrolytes (2) Acute respiratory failure Assessment & Plan: Pulm consulted, appreciate recs PEEP at 14 currently Received lasix in ER Vent care orderset Qualifiers: Respiratory failure complication: hypoxia Qualified Codes: J96.01 - Acute respiratory failure with hypoxia (3) Cardiogenic shock Assessment & Plan: On levophed Cardiology consulted, appreciate recs Maintain MAP >60 troponin negative (4) Transaminitis Assessment & Plan: Mild elevation, likely due to poor perfusion from v-tach Will recheck Also pt obese so may have Condon at baseline KAL MYRICK MD Oct 15, 2018 12:41
--- NOTE | 2018-10-15 13:02 | Electrophysiology Consultation ---
HPI-Cardiology Cardiology Consultation: Date of Consultation 10/15/18 Date of Admission Attending Physician Admitting Physician Gordon Parra DO Consulting Physician Helio SINCLAIR MD HPI: Time Seen by a Provider: 12:15 Chief Complaint: Ventricular tachycardia This is a 52-year-old gentleman who has previous history of possible ventricular tachycardia. According to [place] [facility] [place] and he attempted EP study and ablation but was unsuccessful. Patient was on Cardizem. His last follow-up was also a few years ago. He presented with wide complex tachycardia and gradually became hypotensive requiring intubation, levo fed, numerous shocks. Was seen by Dr. Romero for cardiology. Electrophysiology consultation was recommended. The patient was given amiodarone bolus followed by infusion. He was also started on Cardizem infusion. Subsequently patient converted to sinus rhythm. According to the the patient complained of palpitation but denied any other significant cardiac symptoms. It is unclear whether the patient had chest discomfort. The history was taken from the since the patient was already intubated when I saw the patient in the ER. Review of Systems-Cardiology Review of Systems Constitutional: As described under HPI; No As described under HPI, No no symptoms reported, No chills, No fever, No lightheadedness Eyes: No As described under HPI, No no symptoms reported, No blindness, No blurred vision, No contact lenses, No drainage, No decreased acuity, No foreign body sensation, No pain, No vision change Ears/Nose/Throat: No As described under HPI, No no symptoms reported, No chronic hearing loss, No ear discharge, No ear pain, No nasal drainage, No ulcerations Respiratory: No no symptoms reported; As described under HPI; No As described under HPI, No cough, No orthopnea, No shortness of breath, No SOB with excertion Cardiovascular: No no symptoms reported; As described under HPI; No As described under HPI, No chest pain, No edema, No irregular heart rate, No lightheadedness; palpitations Gastrointestinal: No no symptoms reported, No As described under HPI, No abdomen distended, No abdominal pain, No blood streaked bowels, No constipation , No diarrhea, No nausea, No vomiting, No stool coloration changes Genitourinary: No As described under HPI, No burning, No dysuria, No discharge , No frequency, No flank pain, No hematuria, No urgency Skin: No rash, No skin related problems, No ulcerations Psychiatric/Neurological: No anxiety, No depression, No seizure, No focal weakness, No syncope Hematologic: No bleeding abnormalities UJW-Nmdaaf-Hwbzkd Hx Patient Social History Alcohol Use: Occasionally Uses Recreational Drug Use: Yes Drug of Choice: POT Smoking Status: Never a Smoker Recent Foreign Travel: No Recent Infectious Disease Expo: No Past Medical History PMH As described under Assessment. Allergies and Home Medications Allergies Coded Allergies: No Allergy Information Available (Unverified , 02/03/16) Home Medications Diltiazem HCl 240 Mg Cap.er.24h, 240 MG PO DAILY, (Reported) Pantoprazole Sodium 40 Mg Tablet.dr, 40 MG PO DAILY, (Reported) Patient Home Medication List Home Medication List Reviewed: Yes Physical Exam-Cardiology Physical Exam Vital Signs/I&O 10/15/18 10/15/18 10/15/18 10/15/18 09:45 10:05 11:03 13:05 Temp 98.0 97.9 Pulse 213 184 57 Resp 18 16 16 B/P (MAP) 158/107 (124) 154/111 128/92 (104) Pulse Ox 94 96 97 O2 Delivery Room Air Nasal Cannula Mechanical Ventilator O2 Flow Rate 2.00 2.00 10/15/18 10/15/18 10/15/18 10/15/18 13:21 13:28 13:30 13:57 Pulse 53 53 52 Resp 16 B/P (MAP) 119/84 (96) Pulse Ox 100 100 100 O2 Delivery Mechanical Ventilator Mechanical Ventilator O2 Flow Rate 60.00 FiO2 100 60 10/15/18 10/15/18 10/15/18 10/15/18 14:07 14:15 14:28 14:30 Pulse 53 53 52 52 Resp 25 25 25 24 B/P (MAP) 109/82 (91) 109/82 (91) 112/82 (92) Pulse Ox 100 100 100 100 O2 Delivery Mechanical Ventilator Mechanical Ventilator Mechanical Ventilator O2 Flow Rate 60.00 60.00 40.00 FiO2 60 10/15/18 14:45 Pulse 52 Resp 24 B/P (MAP) 91/61 (71) Pulse Ox 100 O2 Delivery Mechanical Ventilator O2 Flow Rate 40.00 Capillary Refill : Less Than 3 Seconds Constitutional: appears stated age; No apparent distress; well-developed, well- nourished HEENT: PERRL; No discharge; hearing is well preserved, oral hygience is good; No ulceration, No xanthelasmas are seen Neck: No non-tender, No full range of motion, No supple, No normal inspection, No carotid bruit, No limited range of motion, No lymphadenopathy (R), No lymphadenopathy (L), No tender lateral, No tender midline, No thyromegaly, No other; carotid pulses are 2 + bilaterally; No with good upstrokes Respiratory: chest is bilaterally symmetric, lungs clear to auscultation, other (intubated/ ventilated.) Cardiovascular: regular rate-rhythm; No irregularly irregular, No extra beats, No parasternal heave is noted, No JVD, No edema, No bradycardia, No tachycardia , No point of maximal impulse, No cardiac thrills are palpable; S1 and S2; No gallop/S3, No gallop/S4, No diastolic murmur, No systolic murmur, No friction rub, No click, No other Gastrointestinal: No spleenomegaly Rectal: deferred Extremities: No normal range of motion, No non-tender, No normal inspection, No pedal edema, No calf tenderness, No normal capillary refill, No pelvis stable , No calf tenderness, No inflammation, No pedal edema, No slow capillary refill , No swelling, No other, No abrasion, No clubbing, No cyanosis, No ecchymosis, No laceration, No no lower extremity edema bilateral, No significant edema, No tenderness, No wound Neurologic/Psychiatric: alert, oriented x 3, other (intubated/ventilated.), power is 5/5 both on sides Skin: No normal color, No warm/dry, No cyanosis, No cool, No diaphoresis, No damp, No ecchymosis, No jaundice, No mottled, No pallor, No rash, No tattoos/ piercings, No ulcerations, No rash on exposed areas, No ulcerations on exposed areas, No other Data Review Labs Laboratory Tests 10/15/18 09:54: White Blood Count 5.9, Red Blood Count 5.63, Hemoglobin 17.2, Hematocrit 48, Mean Corpuscular Volume 85, Mean Corpuscular Hemoglobin 31, Mean Corpuscular Hemoglobin Concent 36, Red Cell Distribution Width 13.1, Platelet Count 188, Mean Platelet Volume 10.3, Neutrophils (%) (Auto) 50, Lymphocytes (%) (Auto) 35 , Monocytes (%) (Auto) 12, Eosinophils (%) (Auto) 2, Basophils (%) (Auto) 1, Neutrophils # (Auto) 3.0, Lymphocytes # (Auto) 2.0, Monocytes # (Auto) 0.7, Eosinophils # (Auto) 0.1, Basophils # (Auto) 0.0, Prothrombin Time 12.9, INR Comment 1.0, Activated Partial Thromboplast Time 29, Sodium Level 139, Potassium Level 3.6, Chloride Level 104, Carbon Dioxide Level 23, Anion Gap 12, Blood Urea Nitrogen 12, Creatinine 1.10, Estimat Glomerular Filtration Rate > 60 , BUN/Creatinine Ratio 11, Glucose Level 104, Calcium Level 9.3, Corrected Calcium 8.9, Magnesium Level 2.3, Total Bilirubin 0.9, Aspartate Amino Transf ( AST/SGOT) 40H, Alanine Aminotransferase (ALT/SGPT) 67H, Alkaline Phosphatase 89 , Myoglobin 49.6, Troponin I < 0.028, Total Protein 8.0, Albumin 4.5 10/15/18 11:06: Urine Color YELLOW, Urine Clarity CLEAR, Urine pH 6, Urine Specific [place] 1.010L, Urine Protein 2+H, Urine Glucose (UA) NEGATIVE, Urine Ketones NEGATIVE, Urine Nitrite NEGATIVE, Urine Bilirubin NEGATIVE, Urine Urobilinogen NORMAL, Urine Leukocyte Esterase NEGATIVE, Urine RBC (Auto) NEGATIVE, Urine RBC NONE, Urine WBC NONE, Urine Squamous Epithelial Cells NONE, Urine Crystals NONE, Urine Bacteria NEGATIVE, Urine Casts NONE, Urine Mucus NEGATIVE, Urine Culture Indicated NO, Urine Opiates Screen NEGATIVE, Urine Oxycodone Screen NEGATIVE, Urine Methadone Screen NEGATIVE, Urine Propoxyphene Screen NEGATIVE, Urine Barbiturates Screen NEGATIVE, Ur Tricyclic Antidepressants Screen NEGATIVE, Urine Phencyclidine Screen NEGATIVE, Urine Amphetamines Screen NEGATIVE, Urine Methamphetamines Screen NEGATIVE, Urine Benzodiazepines Screen NEGATIVE, Urine Cocaine Screen NEGATIVE, Urine Cannabinoids Screen NEGATIVE 10/15/18 11:55: Blood Gas Puncture Site RT RAD, Blood Gas Patient Temperature 97.9, Arterial Blood pH 7.21*L, Arterial Blood Partial Pressure CO2 52H, Arterial Blood Partial Pressure O2 59L, Arterial Blood HCO3 20L, Arterial Blood Total CO2 22.0 , Arterial Blood Oxygen Saturation 84L, Arterial Blood Base Excess -6.3L, Truong Test YES-POS, Blood Gas Ventilator Setting NO, Blood Gas Inspired Oxygen SEE SPECIMEN COMMENT ECG Impression ECG Initial ECG Rhythm: V.Tach Comment EKG in sinus rhythm showed normal QTc interval. A/P-Cardiology Assessment/Admission Diagnosis Sustained monomorphic VT, Cardiogenic shock Plan Close examination of the EKG demonstrates monomorphic sustained ventricular tachycardia. Right-sided inferior posterior origin. Could be originating from the RV. Continue IV amiodarone and Cardizem. May need to consider changing to IV esmolol. Keep potassium over 4, magnesium over 2. Echocardiogram. May require coronary angiography. Spoke to the about ICD for sustained symptomatic ventricular tachycardia. Patient once stable will likely require EP study and possible VT ablation. Intubated/ventilated, defer to Dr. Moser. Cardiogenic shock: Echocardiogram to check LV function. Continue IV levo fed for now. Critically ill patient requiring over 30 minutes. I also spoke at length to the and family about the guarded prognosis and critical nature of disease. Thank you for your consultation. Please call me if you have any questions. Penny Sinclair MD, FACP, FACC, FSCAI, FHRS, CCDS Interventional Cardiology Cardiac Electrophysiology Vascular Medicine and Endovascular Interventions Helio SINCLAIR MD Oct 15, 2018 1:02 pm
--- OUTSIDE RECORDS SUMMARY | 2018-10-15 13:14 | XMS REPORT | Continuity of Care Document ---
Author Author [facility] Organization [facility] Address Unknown Phone Unavailable Allergies Active Description Code Type Severity Reaction Onset Reported/Identified Relationship to Patient Clinical Status Yes No Allergy Information Available [id number] Drug Allergy Unknown N/A 2015 Medications There is no data. Problems Date Dx Coded Attending Type Code Diagnosis Diagnosed By 03/01/2015 LISA GIRALDO, GENOVEVA Abel Ot 722.52 LUMB/LUMBOSAC DISC DEGEN 02/04/2016 KAYKAY JAMESON J FASHION JOURNALIST Ot H81.11 BENIGN PAROXYSMAL VERTIGO, RIGHT EAR 02/18/2016 KAYKAY, JAMESON Colten FASHION JOURNALIST Ot H81.11 BENIGN PAROXYSMAL VERTIGO, RIGHT EAR 05/05/2016 KAYKAY, JAMESON J FASHION JOURNALIST Ot G47.10 HYPERSOMNIA, UNSPECIFIED 05/05/2016 KAYKAY, JAMSEON J FASHION JOURNALIST Ot R06.83 SNORING 05/05/2016 KAYKAY, JAMESON J FASHION JOURNALIST Ot G47.10 HYPERSOMNIA, UNSPECIFIED 05/05/2016 KAYKAY, JAMESON J FASHION JOURNALIST Ot R06.83 SNORING 05/09/2016 KAYKAY, JAMESON J FASHION JOURNALIST Ot H81.11 BENIGN PAROXYSMAL VERTIGO, RIGHT EAR 06/12/2016 KAYKAY, JAMESON J FASHION JOURNALIST Ot 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 Results Test Result Range Complete blood count (CBC) with automated white blood cell (WBC) differential - 10/15/18 09:54 Blood leukocytes automated count (number/volume) 5.9 10*3/uL 4.3-11.0 Blood erythrocytes automated count (number/volume) 5.63 10*6/uL 4.35-5.85 Venous blood hemoglobin measurement (mass/volume) 17.2 g/dL 13.3-17.7 Blood hematocrit (volume fraction) 48 % 40-54 Automated erythrocyte mean corpuscular volume 85 [foz_us] 80-99 Automated erythrocyte mean corpuscular hemoglobin (mass per erythrocyte) 31 pg 25-34 Automated erythrocyte mean corpuscular hemoglobin concentration measurement ( mass/volume) 36 g/dL 32-36 Automated erythrocyte distribution width ratio 13.1 % 10.0-14.5 Automated blood platelet count (count/volume) 188 10*3/uL 130-400 Automated blood platelet mean volume measurement 10.3 [foz_us] 7.4-10.4 Automated blood neutrophils/100 leukocytes 50 % 42-75 Automated blood lymphocytes/100 leukocytes 35 % 12-44 Blood monocytes/100 leukocytes 12 % 0-12 Automated blood eosinophils/100 leukocytes 2 % 0-10 Automated blood basophils/100 leukocytes 1 % 0-10 Blood neutrophils automated count (number/volume) 3.0 10*3 1.8-7.8 Blood lymphocytes automated count (number/volume) 2.0 10*3 1.0-4.0 Blood monocytes automated count (number/volume) 0.7 10*3 0.0-1.0 Automated eosinophil count 0.1 10*3/uL 0.0-0.3 Automated blood basophil count (count/volume) 0.0 10*3/uL 0.0-0.1 PT panel in platelet poor plasma by coagulation assay - 10/15/18 09:54 Prothrombin time (PT) in platelet poor plasma by coagulation assay 12.9 s 12.2-14.7 INR in platelet poor plasma or blood by coagulation assay 1.0 0.8-1.4 Activated partial thromboplastin time (aPTT) in platelet poor plasma bycoagulation assay - 10/15/18 09:54 Activated partial thromboplastin time (aPTT) in platelet poor plasma bycoagulation assay 29 s 24-35 Comprehensive metabolic panel - 10/15/18 09:54 Serum or plasma sodium measurement (moles/volume) 139 mmol/L 135-145 Serum or plasma potassium measurement (moles/volume) 3.6 mmol/L 3.6-5.0 Serum or plasma chloride measurement (moles/volume) 104 mmol/L 98-107 Carbon dioxide 23 mmol/L 21-32 Serum or plasma anion gap determination (moles/volume) 12 mmol/L 5-14 Serum or plasma urea nitrogen measurement (mass/volume) 12 mg/dL 7-18 Serum or plasma creatinine measurement (mass/volume) 1.10 mg/dL 0.60-1.30 Serum or plasma urea nitrogen/creatinine mass ratio 11 NRG Serum or plasma creatinine measurement with calculation of estimated glomerular filtration rate > NRG Serum or plasma glucose measurement (mass/volume) 104 mg/dL 70-105 Serum or plasma calcium measurement (mass/volume) 9.3 mg/dL 8.5-10.1 Serum or plasma total bilirubin measurement (mass/volume) 0.9 mg/dL 0.1-1.0 Serum or plasma alkaline phosphatase measurement (enzymatic activity/volume) 89 U/L 40-136 Serum or plasma aspartate aminotransferase measurement (enzymatic activity/ volume) 40 U/L 5-34 Serum or plasma alanine aminotransferase measurement (enzymatic activity/volume ) 67 U/L 0-55 Serum or plasma protein measurement (mass/volume) 8.0 g/dL 6.4-8.2 Serum or plasma albumin measurement (mass/volume) 4.5 g/dL 3.2-4.5 CALCIUM CORRECTED 8.9 mg/dL 8.5-10.1 Magnesium - 10/15/18 09:54 Magnesium 2.3 mg/dL 1.8-2.4 Serum or plasma troponin i.cardiac measurement (mass/volume) - 10/15/18 09:54 Serum or plasma troponin i.cardiac measurement (mass/volume) < ng/ mL <0.028 Myoglobin, serum - 10/15/18 09:54 Myoglobin, serum 49.6 ng/mL 10.0-92.0 Urine drug screening test - 10/15/18 11:06 Urine phencyclidine detection by screening method NEGATIVE NEGATIVE Urine benzodiazepines detection by screening method NEGATIVE NEGATIVE Urine cocaine detection NEGATIVE NEGATIVE Urine amphetamines detection by screening method NEGATIVE NEGATIVE Urine methamphetamine detection by screening method NEGATIVE NEGATIVE Urine cannabinoids detection by screening method NEGATIVE NEGATIVE Urine opiates detection by screening method NEGATIVE NEGATIVE Urine barbiturates detection NEGATIVE NEGATIVE Screening urine tricyclic antidepressants detection NEGATIVE NEGATIVE Urine methadone detection by screening method NEGATIVE NEGATIVE Urine oxycodone detection NEGATIVE NEGATIVE Urine propoxyphene detection NEGATIVE NEGATIVE Complete urinalysis with reflex to culture - 10/15/18 11:06 Urine color determination YELLOW NRG Urine clarity determination CLEAR NRG Urine pH measurement by test strip 6 5-9 Specific gravity of urine by test strip 1.010 1.016- 1.022 Urine protein assay by test strip, semi-quantitative 2+ NEGATIVE Urine glucose detection by automated test strip NEGATIVE NEGATIVE Erythrocytes detection in urine sediment by light microscopy NEGATIVE NEGATIVE Urine ketones detection by automated test strip NEGATIVE NEGATIVE Urine nitrite detection by test strip NEGATIVE NEGATIVE Urine total bilirubin detection by test strip NEGATIVE NEGATIVE Urine urobilinogen measurement by automated test strip (mass/volume) NORMAL NORMAL Urine leukocyte esterase detection by dipstick NEGATIVE NEGATIVE Automated urine sediment erythrocyte count by microscopy (number/high power field) NONE NRG Automated urine sediment leukocyte count by microscopy (number/high power field ) NONE NRG Bacteria detection in urine sediment by light microscopy NEGATIVE NRG Squamous epithelial cells detection in urine sediment by light microscopy NONE NRG Crystals detection in urine sediment by light microscopy NONE NRG Casts detection in urine sediment by light microscopy NONE NRG Mucus detection in urine sediment by light microscopy NEGATIVE NRG Complete urinalysis with reflex to culture NO NRG Arterial blood gas measurement - 10/15/18 11:55 Blood pCO2 52 mm[Hg] 35-45 Blood pO2 59 mm[Hg] 79-93 Arterial blood bicarbonate measurement (moles/volume) 20 mmol/L 23-27 Arterial blood base excess by calculation -6.3 mmol/L - 2.5-2.5 Arterial blood oxygen saturation measurement 84 % 94-100 * Inhaled oxygen flow rate SEE SPECIMEN COMMENT NRG Arterial blood pH measurement with patient temperature correction 7.21 7.37-7.43 Arterial blood carbon dioxide, total measurement (moles/volume) 22.0 mmol/L 21.0-31.0 Body site RT RAD NRG Assessment of wrist artery patency prior to arterial puncture YES- POS NRG Setting of ventilation mode NO NRG Measurement of body temperature 97.9 NRG Encounters ACCT No. Visit Date/Time Discharge Status Pt. Type Provider Facility Loc./Unit Complaint [id number] 05/04/2016 20:05:00 05/05/2016 05:55:00 DIS Outpatient JAMESON MCCRACKEN FASHION JOURNALIST [facility] SLEEP NARCOLEPSY, EXCESSIVE DAYTIME SLEEPNESS [id number] 02/03/2016 10:05:00 02/03/2016 23:59:59 CLS Outpatient JAMESON MCCRACKEN FASHION JOURNALIST [facility] RAD VERTIGO [id number] 03/01/2015 12:05:00 03/01/2015 13:01:00 DIS Outpatient GENOVEVA GONZALEZ MD [facility] CARD DDD LUMBAR [id number] 10/15/2018 09:44:00 ACT Emergency CALEB GIRALDO, SHERRI Patel [facility] ER CHEST PAIN
[2018-10-15] MEDS ORDERED: CATHETER FLUSH 10 ML SYR IV PRN (14:00)
[2018-10-15] MEDS ORDERED: PANT40TA3 PO ×2 (14:08)
[2018-10-15] MEDS ORDERED: DILT240C PO ×2 (14:08)
[2018-10-15] MEDS ORDERED: DEXMEDETOMIDINE INJECTION 1,000 MCG in NS (IVPB) 250 ML IV SCH (14:15)
--- NOTE | 2018-10-15 14:29 | NUR ---
UPDATED MED REC WITH EXT MED HX. I SPOKE WITH THE PATIENTS AND SHE VERIFIED HE ONLY TAKES 2 MEDICATIONS. SHE DID NOT KNOW THE SPECIFIC NAMES BUT VERIFIED THEY COME FROM [facility].
[2018-10-15] MEDS: DILTIAZEM INJECTION 125 MG in NS (IVPB) 100 ML IV SCH (14:31)
[2018-10-15] MEDS: NS IV 1000 ML 1,000 ML IV SCH ×2 (14:31→16:48)
[2018-10-15] MEDS ORDERED: FLU QUADRIvalent (5+ YOA) 2018-2019 (AFLURIA) 0.5 ML IM ONE (14:45)
[2018-10-15] MEDS ORDERED: ETOMIDATE IV SOLN 20 MG/10 ML VIAL IV ONE (15:04)
[2018-10-15] MEDS ORDERED: SUCCINYLCHOLINE INJ 100 MG/5 ML SYR INJ ONE (15:04)
[2018-10-15] MEDS ORDERED: MIDAZOLAM 5 MG/5 ML (VERSED) VIAL IJ ONE (15:04)
[2018-10-15] MEDS ORDERED: fentaNYL INJECTION 100 MCG/2 ML AMP INJ ONE (15:04)
[2018-10-15] MEDS ORDERED: LIDOCAINE BOLUS 100 MG/5 ML (IMS) SYR INJ ONE (15:08)
[2018-10-15] MEDS ORDERED: SODIUM BICARB 8.4% 50 MEQ/50 ML (ABBOTT) SYR INJ ONE (15:08)
--- NOTE | 2018-10-15 15:23 | Pulmonary Consultation ---
History of Present Illness History of Present Illness Date of Consultation 10/15/18 15:17 Time Seen by Provider: 11:30 Date of Admission History of Present Illness 52yo with hx of sustained V-Tach presented to ED in wide complex tachycardia with rate of 240 was given Adenosine without change. He was defibrillated 4- 5times in ED without conversion. He was give Amiodarone 150mg bolus then gtt, Cardizem bolus, digoxin. PT was also intubated and after intubation became hypotensive and hypoxic. CXR showed ET tube to be in the correct placement. Even after intubation Sp02 was 75% on 100% Fi02. Peep was increased to 14. Over the coarse of about an hour BP improved while on levophed. HR improved then finally converted to sinus. Sp02 slowly imporved to 90's. PT has had a similar episode where he was flown to [place]. I am consulted for ICU management. Unable to obtain ROS secondary to pt being sedated on vent. \\ Allergies and Home Medications Allergies Coded Allergies: No Allergy Information Available (Unverified , 02/03/16) Home Medications Diltiazem HCl 240 Mg Cap.er.24h, 240 MG PO DAILY, (Reported) Pantoprazole Sodium 40 Mg Tablet.dr, 40 MG PO DAILY, (Reported) Past Uknsqmx-Ocitna-Aadwep Hx Past Med/Social Hx: Reviewed Nursing Past Med/Soc Hx Patient Social History Alcohol Use: Occasionally Uses Recreational Drug Use: Yes Drug of Choice: POT Smoking Status: Never a Smoker Recent Foreign Travel: No Contact w/Someone Who Travel: No Recent Infectious Disease Expo: No Recent Hopitalizations: No Past Medical History Surgeries: Yes Appendectomy, Gallbladder Respiratory: No Cardiac: Yes (SVT) Atrial Fibrillation, Hypertension, Irregular Heartbeat (v-tach) Neurological: No Concussion Genitourinary: No Gastrointestinal: No Endocrine: No HEENT: No Cancer: No Psychosocial: No Integumentary: No Family Medical History Reviewed Nursing Family Hx No Pertinent Family Hx Review of Systems Time Seen by Provider: 15:24 Sepsis Event Evaluation Height, Weight, BMI Height: 5'10.00" Weight: 244lbs. 0.0oz. 110.479266cj; 35.0 BMI Method:Stated Exam Exam Vital Signs Date Time Temp Pulse Resp B/P (MAP) Pulse Ox O2 Delivery O2 Flow Rate FiO2 10/15/18 14:45 52 24 91/61 (71) 100 Mechanical Ventilator 40.00 10/15/18 14:30 52 24 112/82 (92) 100 Mechanical Ventilator 40.00 10/15/18 14:28 52 25 100 60 10/15/18 14:15 53 25 109/82 (91) 100 Mechanical Ventilator 60.00 10/15/18 14:07 53 25 109/82 (91) 100 Mechanical Ventilator 60.00 10/15/18 13:57 100 Mechanical Ventilator 60 10/15/18 13:30 52 16 119/84 (96) 100 Mechanical Ventilator 60.00 10/15/18 13:28 53 25 100 100 10/15/18 13:21 53 10/15/18 13:05 57 16 128/92 (104) 97 Mechanical Ventilator 10/15/18 11:03 97.9 184 16 154/111 96 2.00 10/15/18 10:05 Nasal Cannula 2.00 10/15/18 09:45 98.0 213 18 158/107 (124) 94 Room Air Height & Weight Height: 5'10.00" Weight: 244lbs. 0.0oz. 110.890220fh; 35.0 BMI Method:Stated General Appearance: Obese, Other (intubated/sedated) HEENT: PERRL/EOMI, Moist Mucous Membranes; No Scleral Icterus (L), No Scleral Icterus (R) Neck: JVD; No Thyromegaly; Other (central line in place) Respiratory: Rhonci; No Wheezing; Other (on vent) Cardiovascular: Regular Rate, Rhythm, No Edema, No Murmur, Normal Peripheral Pulses Capillary Refill: Less Than 3 Seconds Extremity: Normal Capillary Refill, Normal Inspection, No Pedal Edema Neurologic/Psychiatric: Other (sedated on vent) Skin: Normal Color, Warm/Dry Results Lab Laboratory Tests 10/15/18 09:54 Assessment/Plan Assessment/Plan Acute respiratory failure with severe hypoxia -Increase PEEP to 14, Fi02 is 100% -Continue ventilator therapy Sustained V tach -Cardiology following -Cardizem, Digoxin, amio Cardiogenic shock with bilateral pulmonary congestion -Lasix was given 40mg x1 after BP improved Shock liver -Monitor JERALD BRANTLEY DO Oct 15, 2018 15:23
[2018-10-15 15:25] LABS: ABG BASE EXCESS -1.8 MMOL/L (-2.5-2.5); ABG OXYGEN SATURATION 93 % (94-100); ABG PCO2 39 MMHG (35-45); ABG PH 7.38 (7.37-7.43); ABG PO2 61 MMHG (79-93); ABG TCO2 24.1 MMOL/L (21.0-31.0)
[2018-10-15 15:28] LABS: ALLENS TEST POSITIVE; INSPIRED O2 40%; PATIENT TEMP 96.4; VENTILATOR YES
[2018-10-15 15:57] LABS: BASOPHILS % (AUTO) 0 % (0-10); EOSINOPHILS # (AUTO) 0.1 10^3/uL (0.0-0.3); EOSINOPHILS % (AUTO) 1 % (0-10); HEMATOCRIT 45 % (40-54); HEMOGLOBIN 16.2 G/DL (13.3-17.7); LYMPHOCYTES # (AUTO) 1.4 X 10^3 (1.0-4.0); LYMPHOCYTES % (AUTO) 16 % (12-44); MEAN CORPUSCULAR HEMOGLOBIN 31 PG (25-34); MEAN CORPUSCULAR HGB CONC 36 G/DL (32-36); MEAN CORPUSCULAR VOLUME 85 FL (80-99); MEAN PLATELET VOLUME 10.3 FL (7.4-10.4); MONOCYTES # (AUTO) 0.9 X 10^3 (0.0-1.0); MONOCYTES % (AUTO) 10 % (0-12); NEUTROPHILS # (AUTO) 6.4 X 10^3 (1.8-7.8); NEUTROPHILS % (AUTO) 73 % (42-75); PLATELET COUNT 230 10^3/uL (130-400); RED CELL DISTRIBUTION WIDTH 13.1 % (10.0-14.5); WHITE BLOOD COUNT 8.7 10^3/uL (4.3-11.0)
[2018-10-15] MEDS ORDERED: NOREPINEPHRINE 4 MG in NS (IVPB) 250 ML IV SCH (16:00)
[2018-10-15 16:24] LABS: ALANINE AMINOTRANSFERASE 123 U/L (0-55); ALBUMIN 3.5 GM/DL (3.2-4.5); ALKALINE PHOSPHATASE 80 U/L (40-136); BILIRUBIN,TOTAL 1.3 MG/DL (0.1-1.0); BUN/CREATININE RATIO 12; CALCIUM 7.5 MG/DL (8.5-10.1); CARBON DIOXIDE 23 MMOL/L (21-32); CHLORIDE 108 MMOL/L (98-107); CREATININE SERUM 0.95 MG/DL (0.60-1.30); GFR ESTIMATED > 60; GLUCOSE 140 MG/DL (70-105); MAGNESIUM 1.7 MG/DL (1.8-2.4); PHOSPHORUS 3.1 MG/DL (2.3-4.7); POTASSIUM 3.6 MMOL/L (3.6-5.0); SODIUM 140 MMOL/L (135-145); TOTAL PROTEIN 6.2 GM/DL (6.4-8.2)
[2018-10-15] MEDS ORDERED: RT-ALBUTEROL SULF 2.5 MG/3 ML PRE-MIX VIAL INH PRN (17:00)
[2018-10-15] MEDS ORDERED: inSUlin ASPART (NovoLOG) 1 UNIT/0.01 ML (CHARGE PER UNIT) SQ PRN (17:45)
--- NOTE | 2018-10-15 17:45 | Consultation-Cardiology ---
HPI-Cardiology Cardiology Consultation: Date of Consultation 10/15/18 Time Seen by a Provider: 10:10 Date of Admission Attending Physician Talia Myrick MD Admitting Physician Gordon Parra DO Consulting Physician LISA MARCOS MD, MA, FACP, FACC, [facility] [place], CCDS HPI: Chief Complaint: Reason for consultation: Wide-complex tachycardia HPI 52 yo man who had sudden onset of a rapid heart beat at work at approx 9:30 am. Came to ER. Found to have wide-complex tachycardia, diagnosed as sustained VT at approx 210 bpm. Treated with iv amiodarone. Tachycardia persisted. Dr Trimble called us in Cardiology consult. Mr Torres reported that he had had a similar episode several years ago for which he was seen at [facility] and required prolonged treatment with various agents and with electrical shocks to restore sinus rhythm. Subsequently, Dr Humphries of the EP Service at [facility] , attempted an ablation, but it was unsuccessful. He was placed on oral diltiazem at that time, but he has not followed up in a long time. He noted a feeling of shortness of breath and gen discomfort. He did not report chest pain or other symptoms. Because of persistent WCT with a heart persistently at 210 bpm despite medical therapy and because of symptoms, we discussed electrical cardioversion/defibrillation. He provided informed consent and we proceeded after Dr Trimble provided short-acting anesthesia with propofol first and then with ketamine. Multiple shocks were attempted: 120 J sync biphasic (unsuccessfu); 200 J biphasic (unsuccessful); 200 J biphasic after repositioning patches (unsuccessful); 200 J biphasic after 150 mg amiodarone and 150 mg lidocaine and amiodarone maintenance infusion running ( unsucessful). In the interval between shocks, I also discussed his case with Dr Sinclair of EPS at 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 Their recommendations were implemented (see above). Mr Torres remained in VT/WCT. His resp status deteriorated and he needed to be intubated and placed on mech vent. ECG remained unchanged except that on a subsequent ECG, there appeared to be underlying atrial flutter and 2:1 AV conduction was suspected. Nevertheless, we continue to treat both for VT and for possible A Fl with 2:1 conduction with aberrancy. Blood pressure was supported with iv fluids and with Levophed. I remained by his bedside from 10: 10 am to 11:50 am. He attained sinus rhythm while a central line was being placed by Dr Trimble Review of Systems-Cardiology Review of Systems Constitutional: No lightheadedness, No malaise, No weight loss, No weight gain Eyes: No vision change Ears/Nose/Throat: No ear discharge, No nasal drainage, No recent hearing loss Respiratory: As described under HPI Cardiovascular: As described under HPI, palpitations Gastrointestinal: No constipation, No diarrhea, No nausea, No vomiting Genitourinary: No dysuria, No hematuria Musculoskeletal: No back pain, No joint pain Skin: No rash, No ulcerations Psychiatric/Neurological: No seizure, No focal weakness, No syncope Hematologic: No bleeding abnormalities ICW-Egekfx-Zmttmo Hx Patient Social History Marrital Status: Alcohol Use: Occasionally Uses Recreational Drug Use: Yes Drug of Choice: POT Smoking Status: Never a Smoker Recent Foreign Travel: No Recent Infectious Disease Expo: No Past Medical History PMH As described under Assessment. Family Medical History Family Medical History: No fam h/o early CAD or SCD Allergies and Home Medications Allergies Coded Allergies: No Allergy Information Available (Unverified , 02/03/16) Home Medications Diltiazem HCl 240 Mg Cap.er.24h, 240 MG PO DAILY, (Reported) Pantoprazole Sodium 40 Mg Tablet.dr, 40 MG PO DAILY, (Reported) Patient Home Medication List Home Medication List Reviewed: Yes Physical Exam-Cardiology Physical Exam Vital Signs/I&O 10/15/18 10/15/18 10/15/18 10/15/18 09:45 10:05 11:03 13:05 Temp 98.0 97.9 Pulse 213 184 57 Resp 18 16 16 B/P (MAP) 158/107 (124) 154/111 128/92 (104) Pulse Ox 94 96 97 O2 Delivery Room Air Nasal Cannula Mechanical Ventilator O2 Flow Rate 2.00 2.00 10/15/18 10/15/18 10/15/18 10/15/18 13:21 13:28 13:30 13:57 Pulse 53 53 52 Resp 25 16 B/P (MAP) 119/84 (96) Pulse Ox 100 100 100 O2 Delivery Mechanical Ventilator Mechanical Ventilator O2 Flow Rate 60.00 FiO2 100 60 3/12/19 3/12/19 3/12/19 3/12/19 14:07 14:15 14:28 14:30 Pulse 53 53 52 52 Resp 25 25 25 24 B/P (MAP) 109/82 (91) 109/82 (91) 112/82 (92) Pulse Ox 100 100 100 100 O2 Delivery Mechanical Ventilator Mechanical Ventilator Mechanical Ventilator O2 Flow Rate 60.00 60.00 40.00 FiO2 60 10/15/18 10/15/18 10/15/18 10/15/18 14:45 16:00 16:00 16:38 Temp 96.8 Pulse 52 51 Resp 24 25 B/P (MAP) 91/61 (71) Pulse Ox 100 99 O2 Delivery Mechanical Ventilator Mechanical Ventilator O2 Flow Rate 40.00 FiO2 40 40 10/15/18 16:48 B/P (MAP) 114/82 Capillary Refill : Less Than 3 Seconds Constitutional: appears stated age; No apparent distress; well-developed, well- nourished, other (This exam is from before electrical cardioversion and subsequent events (see above under HPI)) HEENT: PERRL, hearing is well preserved Neck: carotid pulses are 2 + bilaterally Respiratory: chest is bilaterally symmetric, lungs clear to auscultation Cardiovascular: regular rate-rhythm, S1 and S2, systolic murmur (faint LORENA at card base) Gastrointestinal: No tender, No guarding, No rebound; audible bowel sounds Extremities: No clubbing, No cyanosis, No significant edema Neurologic/Psychiatric: alert, oriented x 3, other (before sedation and intubation), power is 5/5 both on sides Skin: No rash on exposed areas, No ulcerations on exposed areas Data Review Labs Laboratory Tests 10/15/18 09:54: White Blood Count 5.9, Red Blood Count 5.63, Hemoglobin 17.2, Hematocrit 48, Mean Corpuscular Volume 85, Mean Corpuscular Hemoglobin 31, Mean Corpuscular Hemoglobin Concent 36, Red Cell Distribution Width 13.1, Platelet Count 188, Mean Platelet Volume 10.3, Neutrophils (%) (Auto) 50, Lymphocytes (%) (Auto) 35 , Monocytes (%) (Auto) 12, Eosinophils (%) (Auto) 2, Basophils (%) (Auto) 1, Neutrophils # (Auto) 3.0, Lymphocytes # (Auto) 2.0, Monocytes # (Auto) 0.7, Eosinophils # (Auto) 0.1, Basophils # (Auto) 0.0, Prothrombin Time 12.9, INR Comment 1.0, Activated Partial Thromboplast Time 29, Sodium Level 139, Potassium Level 3.6, Chloride Level 104, Carbon Dioxide Level 23, Anion Gap 12, Blood Urea Nitrogen 12, Creatinine 1.10, Estimat Glomerular Filtration Rate > 60 , BUN/Creatinine Ratio 11, Glucose Level 104, Calcium Level 9.3, Corrected Calcium 8.9, Magnesium Level 2.3, Total Bilirubin 0.9, Aspartate Amino Transf ( AST/SGOT) 40H, Alanine Aminotransferase (ALT/SGPT) 67H, Alkaline Phosphatase 89 , Myoglobin 49.6, Troponin I < 0.028, Total Protein 8.0, Albumin 4.5 10/15/18 11:06: Urine Color YELLOW, Urine Clarity CLEAR, Urine pH 6, Urine Specific Willard 1.010L, Urine Protein 2+H, Urine Glucose (UA) NEGATIVE, Urine Ketones NEGATIVE, Urine Nitrite NEGATIVE, Urine Bilirubin NEGATIVE, Urine Urobilinogen NORMAL, Urine Leukocyte Esterase NEGATIVE, Urine RBC (Auto) NEGATIVE, Urine RBC NONE, Urine WBC NONE, Urine Squamous Epithelial Cells NONE, Urine Crystals NONE, Urine Bacteria NEGATIVE, Urine Casts NONE, Urine Mucus NEGATIVE, Urine Culture Indicated NO, Urine Opiates Screen NEGATIVE, Urine Oxycodone Screen NEGATIVE, Urine Methadone Screen NEGATIVE, Urine Propoxyphene Screen NEGATIVE, Urine Barbiturates Screen NEGATIVE, Ur Tricyclic Antidepressants Screen NEGATIVE, Urine Phencyclidine Screen NEGATIVE, Urine Amphetamines Screen NEGATIVE, Urine Methamphetamines Screen NEGATIVE, Urine Benzodiazepines Screen NEGATIVE, Urine Cocaine Screen NEGATIVE, Urine Cannabinoids Screen NEGATIVE 10/15/18 11:55: Blood Gas Puncture Site RT RAD, Blood Gas Patient Temperature 97.9, Arterial Blood pH 7.21*L, Arterial Blood Partial Pressure CO2 52H, Arterial Blood Partial Pressure O2 59L, Arterial Blood HCO3 20L, Arterial Blood Total CO2 22.0 , Arterial Blood Oxygen Saturation 84L, Arterial Blood Base Excess -6.3L, Truong Test YES-POS, Blood Gas Ventilator Setting NO, Blood Gas Inspired Oxygen SEE SPECIMEN COMMENT 10/15/18 15:18: Blood Gas Puncture Site LEFT BRACHIAL, Blood Gas Patient Temperature 96.4, Arterial Blood pH 7.38, Arterial Blood Partial Pressure CO2 39, Arterial Blood Partial Pressure O2 61L, Arterial Blood HCO3 23, Arterial Blood Total CO2 24.1, Arterial Blood Oxygen Saturation 93L, Arterial Blood Base Excess -1.8, Truong Test POSITIVE, Blood Gas Ventilator Setting YES, Blood Gas Inspired Oxygen 40% 10/15/18 15:48: White Blood Count 8.7, Red Blood Count 5.23, Hemoglobin 16.2, Hematocrit 45, Mean Corpuscular Volume 85, Mean Corpuscular Hemoglobin 31, Mean Corpuscular Hemoglobin Concent 36, Red Cell Distribution Width 13.1, Platelet Count 230, Mean Platelet Volume 10.3, Neutrophils (%) (Auto) 73, Lymphocytes (%) (Auto) 16 , Monocytes (%) (Auto) 10, Eosinophils (%) (Auto) 1, Basophils (%) (Auto) 0, Neutrophils # (Auto) 6.4, Lymphocytes # (Auto) 1.4, Monocytes # (Auto) 0.9, Eosinophils # (Auto) 0.1, Basophils # (Auto) 0.0, Sodium Level 140, Potassium Level 3.6, Chloride Level 108H, Carbon Dioxide Level 23, Anion Gap 9, Blood Urea Nitrogen 11, Creatinine 0.95, Estimat Glomerular Filtration Rate > 60, BUN/ Creatinine Ratio 12, Glucose Level 140H, Lactic Acid Level 1.13, Calcium Level 7.5L, Corrected Calcium 7.9L, Phosphorus Level 3.1, Magnesium Level 1.7L, Total Bilirubin 1.3H, Aspartate Amino Transf (AST/SGOT) 96H, Alanine Aminotransferase (ALT/SGPT) 123H, Alkaline Phosphatase 80, Troponin I 0.287H, Total Protein 6.2L , Albumin 3.5 A/P-Cardiology Assessment/Admission Diagnosis Incessant wide-complex tachycardia: VT vs A Fl with 2:1 AV conduction and aberrancy Discussion and Recomendations * Treat with amiodarone and diltiazem * Support bp: fluids and pressors * Monitor labs * EP consult (spoke with Dr Sinclair) Clinical Quality Measures DVT/VTE Risk/Contraindication: Risk Factor Score Per Nursin RFS Level Per Nursing on Admit: 3=High Physician Assessment Physician Assessment Continuous critical care management at patient's bedside: 10:10 am to 11:50 am LISA MARCOS MD [facility] Oct 15, 2018 17:45
[2018-10-15] MEDS ORDERED: POTASSIUM CL 10MEQ/50ML IVPB 100 ML IV ONE (17:52)
[2018-10-15] MEDS ORDERED: MAGNESIUM 1 GM/100 ML IVPB 200 ML IV ONE (17:52)
[2018-10-15] MEDS: POTASSIUM CL 10MEQ/50ML IVPB 50 ML IV SCH ×2 (18:06→18:08)
[2018-10-15] MEDS: MAGNESIUM 1 GM/100 ML IVPB 100 ML IV SCH ×2 (18:07→18:08)
[2018-10-15] MEDS: RT-ALBUTEROL SULF 2.5 MG/3 ML PRE-MIX VIAL INH SCH ×2 (18:46→22:25)
[2018-10-15] MEDS: PANTOPRAZOLE 40 MG (PROTONIX) VIAL IV SCH (18:47)
[2018-10-15] MEDS: PROPOFOL DRIP (ICU) 100 ML IV SCH (22:00)
[2018-10-16] VITALS (25 sets, daily range): BP systolic 91–162; BP diastolic 58–91
[2018-10-16] MEDS: NS IV 1000 ML 1,000 ML IV SCH ×2 (01:50→12:19)
[2018-10-16] MEDS: RT-ALBUTEROL SULF 2.5 MG/3 ML PRE-MIX VIAL INH SCH ×6 (02:42→21:57)
[2018-10-16] MEDS: PROPOFOL DRIP (ICU) 100 ML IV SCH (02:44)
[2018-10-16 04:05] LABS: BASOPHILS % (AUTO) 0 % (0-10); EOSINOPHILS # (AUTO) 0.1 10^3/uL (0.0-0.3); EOSINOPHILS % (AUTO) 1 % (0-10); HEMATOCRIT 41 % (40-54); HEMOGLOBIN 14.5 G/DL (13.3-17.7); LYMPHOCYTES % (AUTO) 14 % (12-44); MEAN CORPUSCULAR HEMOGLOBIN 31 PG (25-34); MEAN CORPUSCULAR HGB CONC 36 G/DL (32-36); MEAN CORPUSCULAR VOLUME 86 FL (80-99); MEAN PLATELET VOLUME 10.4 FL (7.4-10.4); MONOCYTES # (AUTO) 0.8 X 10^3 (0.0-1.0); MONOCYTES % (AUTO) 11 % (0-12); NEUTROPHILS # (AUTO) 5.5 X 10^3 (1.8-7.8); NEUTROPHILS % (AUTO) 74 % (42-75); PLATELET COUNT 165 10^3/uL (130-400); RED CELL DISTRIBUTION WIDTH 13.5 % (10.0-14.5); WHITE BLOOD COUNT 7.5 10^3/uL (4.3-11.0)
[2018-10-16 04:16] LABS: INR 1.1 (0.8-1.4); PROTHROMBIN TIME PATIENT 14.3 SEC (12.2-14.7)
[2018-10-16 04:22] LABS: ABG BASE EXCESS -0.7 MMOL/L (-2.5-2.5); ABG OXYGEN SATURATION 97 % (94-100); ABG PCO2 38 MMHG (35-45); ABG PH 7.41 (7.37-7.43); ABG PO2 81 MMHG (79-93); ABG TCO2 24.6 MMOL/L (21.0-31.0)
[2018-10-16 04:25] LABS: ALANINE AMINOTRANSFERASE 96 U/L (0-55); ALBUMIN 3.2 GM/DL (3.2-4.5); ALKALINE PHOSPHATASE 70 U/L (40-136); BUN/CREATININE RATIO 11; CALCIUM 7.7 MG/DL (8.5-10.1); CARBON DIOXIDE 22 MMOL/L (21-32); CHLORIDE 109 MMOL/L (98-107); CREATININE SERUM 0.92 MG/DL (0.60-1.30); GFR ESTIMATED > 60; GLUCOSE 104 MG/DL (70-105); MAGNESIUM 2.2 MG/DL (1.8-2.4); PHOSPHORUS 3.1 MG/DL (2.3-4.7); POTASSIUM 3.6 MMOL/L (3.6-5.0); SODIUM 140 MMOL/L (135-145); TOTAL PROTEIN 5.6 GM/DL (6.4-8.2)
[2018-10-16] MEDS: MAGNESIUM 1 GM/100 ML IVPB 100 ML IV SCH (04:28)
[2018-10-16] MEDS: POTASSIUM CL 10MEQ/50ML IVPB 50 ML IV SCH ×3 (04:28→05:30)
[2018-10-16] MEDS: KCL 20 MEQ TAB (K-DUR) PO SCH (04:28)
[2018-10-16 04:29] LABS: ALLENS TEST YES-POS; INSPIRED O2 30%; PATIENT TEMP 98.7; VENTILATOR YES
[2018-10-16] MEDS ORDERED: CALCIUM GLUC. 10% 4.65 MEQ/10 ML VIAL IV ONE (05:00)
--- NOTE | 2018-10-16 05:01 | Pulmonary Progress Note ---
Subjective Time Seen by a Provider: 05:00 Subjective/Events-last exam PT is now bradycardic. Respiratory colon is doing much better. Sepsis Event Evaluation Height, Weight, BMI Height: 5'10.00" Weight: 244lbs. 0.0oz. 110.494788oj; 35.0 BMI Method:Stated Focused Exam Lactate Level 10/15/18 15:48: Lactic Acid Level 1.13 Exam Exam Vital Signs Date Time Temp Pulse Resp B/P (MAP) Pulse Ox O2 Delivery O2 Flow Rate FiO2 10/16/18 04:07 53 25 97 30 10/16/18 04:00 56 24 95/59 (71) 97 Mechanical Ventilator 30.00 10/16/18 03:30 96 Mechanical Ventilator 30 10/16/18 03:30 98.7 Mechanical Ventilator 30.00 10/16/18 03:00 51 25 91/58 (69) 97 Mechanical Ventilator 30.00 10/16/18 02:44 109/68 Mechanical Ventilator 30.00 10/16/18 02:42 48 25 98 30 10/16/18 02:00 47 21 106/64 (78) 97 Mechanical Ventilator 30.00 10/16/18 01:00 52 10/16/18 00:05 63 27 94 30 10/16/18 00:00 61 25 115/69 (84) 92 Mechanical Ventilator 30.00 10/15/18 23:20 95 Mechanical Ventilator 30 10/15/18 23:20 98.0 60 25 98 Mechanical Ventilator 30.00 10/15/18 23:00 59 20 106/65 (79) 99 Mechanical Ventilator 30.00 10/15/18 22:25 57 31 97 30 10/15/18 22:00 56 24 97/65 (76) 96 Mechanical Ventilator 30.00 10/15/18 22:00 Mechanical Ventilator 30.00 10/15/18 21:00 59 24 108/66 (80) 100 Mechanical Ventilator 30.00 10/15/18 20:13 53 29 99 30 10/15/18 20:00 53 18 143/93 (110) 100 Mechanical Ventilator 30.00 10/15/18 19:35 99 Mechanical Ventilator 30 10/15/18 19:00 50 10/15/18 19:00 97.6 50 25 107/75 (86) 99 Mechanical Ventilator 30.00 10/15/18 18:54 48 25 99 30 10/15/18 18:00 50 25 123/89 (100) 98 Mechanical Ventilator 40.00 10/15/18 17:00 49 14 109/84 (92) 97 Mechanical Ventilator 40.00 10/15/18 16:48 114/82 10/15/18 16:38 51 25 99 40 10/15/18 16:00 52 25 114/83 (93) 99 Mechanical Ventilator 40.00 10/15/18 16:00 96.8 10/15/18 16:00 Mechanical Ventilator 40 10/15/18 15:00 53 25 104/79 (87) 99 Mechanical Ventilator 40.00 10/15/18 14:45 52 24 91/61 (71) 100 Mechanical Ventilator 40.00 10/15/18 14:30 52 24 112/82 (92) 100 Mechanical Ventilator 40.00 10/15/18 14:28 52 25 100 60 10/15/18 14:15 53 25 109/82 (91) 100 Mechanical Ventilator 60.00 10/15/18 14:07 53 25 109/82 (91) 100 Mechanical Ventilator 60.00 10/15/18 13:57 100 Mechanical Ventilator 60 10/15/18 13:30 52 16 119/84 (96) 100 Mechanical Ventilator 60.00 10/15/18 13:28 53 25 100 100 10/15/18 13:21 53 10/15/18 13:05 57 16 128/92 (104) 97 Mechanical Ventilator 10/15/18 11:03 97.9 184 16 154/111 96 2.00 10/15/18 10:05 Nasal Cannula 2.00 10/15/18 09:45 98.0 213 18 158/107 (124) 94 Room Air I & O 10/16/18 07:00 Intake Total 4500 ml Output Total 2850 ml Balance 1650 ml Height & Weight Height: 5'10.00" Weight: 244lbs. 0.0oz. 110.572429pd; 35.0 BMI Method:Stated General Appearance: No Apparent Distress, WD/WN HEENT: PERRL/EOMI, Pharynx Normal Neck: Non Tender, Supple Respiratory: Lungs Clear, Normal Breath Sounds Cardiovascular: No Murmur, Tachycardia Capillary Refill: Less Than 3 Seconds Extremity: Normal Range of Motion, Non Tender Neurologic/Psychiatric: Alert, Oriented x3 Skin: Normal Color, Warm/Dry Results Lab Laboratory Tests 10/15/18 09:54 10/15/18 15:48 10/16/18 03:20 Assessment/Plan Assessment/Plan Acute respiratory failure with severe hypoxia -Will start weaning vent S/P Sustained V tach -Cardiology following - Digoxin, amio Cardiogenic shock with bilateral pulmonary congestion -Lasix was given 40mg x1 after BP improved -repeat BNP Elevated LFTs - improving -Monitor JERALD BRANTLEY DO Oct 16, 2018 05:01
[2018-10-16] MEDS ORDERED: CALCIUM GLUC. 10% 4.65 MEQ/10 ML VIAL ONE (05:13)
[2018-10-16] MEDS ORDERED: CALCIUM GLUCONATE 10% INJ 4.65 MEQ in NS (IVPB) 50 ML IV ONE (05:15)
[2018-10-16] MEDS ORDERED: NS (IVPB) 50 ML ONE (05:16)
[2018-10-16 05:30] LABS: ABG BASE EXCESS -1.1 MMOL/L (-2.5-2.5); ABG OXYGEN SATURATION 95 % (94-100); ABG PCO2 36 MMHG (35-45); ABG PH 7.42 (7.37-7.43); ABG PO2 72 MMHG (79-93); ABG TCO2 23.9 MMOL/L (21.0-31.0)
[2018-10-16 05:55] LABS: ALLENS TEST YES-POS; INSPIRED O2 30%; VENTILATOR YES
--- NOTE | 2018-10-16 06:01 | NUR ---
Dr Moser notified of ABG results. Order to extubate.
--- NOTE | 2018-10-16 06:05 | NUR ---
Rt present in the room at this time for extubation. Patient tolerated without difficulty.
--- NOTE | 2018-10-16 08:05 | Progress Note-Hospitalist ---
Subjective HPI/CC On Admission Date Seen by Provider: Oct 16, 2018 Time Seen by Provider: 07:30 Pt is a 52yoCM with a PMH of sustained v-tach who presented to the ER due to chest tightness and pain. He is unable to provide any history as he is sedated and intubated. All history from records and bedside report from ED Physician. He reported had a similar episode of v-tach that was refractory to standard treatment and was cared for by a wind tunnel technician in [place]. Today he presented and was found to have a heart rate of 240 with a wide complex rhythm with a pulse. He was given escalating doses of adenosine without improvement. he was hypertensive on arrival as well. He was shocked a total of 4 times to attempt to convert him but these were unsuccessful. He was then given amiodarone bolus and started on a gtt. He was treated with an esmolol bolus as well. These were unsuccessful. Dr Romero of cardiology services came to bedside. He was given lidocaine as well. He then became hypotensive and was treated with 3L of IVF. Following fluid resuscitation he developed frothy sputum and hypoxia and was emergently intubated. He remained hypotensive with intubation and his sedation was switched from propofol to precedex. He was started on a cardizem gtt as well. When I arrived to bedside Dr Trimble was placing a central line and Dr Moser was at bedside as well. Shortly after central line placement his rhythm converted to sinus in the 60s. Currently he is on levophed and cardizem gtt for pressure and rate control. He is intubated with a PEEP of 14 to maintain oxygen saturations. He is to be transferred to the ICU. Subjective/Events-last exam Pt reports feeling better today. Extubated this AM. No complaints. Pt states previously had ablation that failed roughly 10 years ago. Focused Exam Lactate Level 10/15/18 15:48: Lactic Acid Level 1.13 Objective Exam Vital Signs Vital Signs Date Time Temp Pulse Resp B/P (MAP) Pulse Ox O2 Delivery O2 Flow Rate FiO2 10/16/18 07:14 94 Nasal Cannula 3.00 10/16/18 06:00 54 20 118/73 (88) 10/16/18 04:07 30 10/16/18 03:30 98.7 Capillary Refill : Less Than 3 Seconds General Appearance: No Apparent Distress, WD/WN Neck: Other (central line in place) Respiratory: Lungs Clear, Normal Breath Sounds Cardiovascular: Regular Rate, Rhythm, No Murmur Gastrointestinal: Non Tender, Soft Extremity: Normal Inspection, No Pedal Edema Neurologic/Psychiatric: Alert, Oriented x3, Normal Mood/Affect Results/Procedures Lab Laboratory Tests 10/15/18 09:54 10/15/18 15:48 10/16/18 03:20 Patient resulted labs reviewed. Imaging: Reviewed Imaging Report Assessment/Plan Assessment and Plan Assess & Plan/Chief Complaint Sustained V-tach Diagnosis/Problems Diagnosis/Problems (1) Sustained ventricular tachycardia Assessment & Plan: Failed multiple attempts at conversion in the ER Ultimately converted during central line placement Currently on cardizem and amio gtt Cardiology consulted, appreciate recs Keep K >4 and Mg >2 (2) Cardiogenic shock Assessment & Plan: Cardiology consulted Echo reveals preserved EF with PA pressure of 25 Off Levophed (3) Acute respiratory failure Status: Resolved Assessment & Plan: Extubated this AM Currently on 2lpm Pulm consulted, appreciate recs Qualifiers: Respiratory failure complication: hypoxia Qualified Codes: J96.01 - Acute respiratory failure with hypoxia Resolution Date/Time: 10/16/18 @ 08:03 (4) Transaminitis Assessment & Plan: Mild elevation, likely due to poor perfusion from v-tach, improving today Also pt obese so may have DEL RIO at baseline Clinical Quality Measures AMI/AHF: ASA po Prior to arrival: No DVT/VTE Risk/Contraindication: Risk Factor Score Per Nursin RFS Level Per Nursing on Admit: 3=High KAL IGNACIO MD Oct 16, 2018 08:05
[2018-10-16] MEDS: PANTOPRAZOLE 40 MG (PROTONIX) VIAL IV SCH (08:22)
--- NOTE | 2018-10-16 10:01 | Cardiology Progress Note ---
Cardiology SOAP Progress Note Subjective: Extubated, no chest pain no other cardiac symptoms. Patient is in sinus rhythm. Objective: I&O/Vital Signs 10/16/18 10/16/18 10/16/18 10/16/18 10:00 11:00 11:01 12:00 Temp 97.6 Pulse 65 65 Resp 14 14 B/P (MAP) 125/70 (88) 125/70 (88) Pulse Ox 97 97 O2 Delivery Nasal Cannula Room Air Room Air O2 Flow Rate 2.00 10/16/18 10/16/18 10/16/18 10/16/18 12:52 13:00 13:03 14:30 Pulse 72 75 71 Resp 19 10 B/P (MAP) 130/80 (97) 142/83 (102) Pulse Ox 95 96 93 O2 Delivery Room Air Room Air Room Air 10/16/18 10/16/18 10/16/18 10/16/18 14:36 15:00 16:00 16:00 Pulse 84 85 Resp 30 14 B/P (MAP) 146/83 (104) 147/80 (102) Pulse Ox 97 93 93 94 O2 Delivery Room Air Room Air Room Air Room Air 10/16/18 10/16/18 10/16/18 10/16/18 17:00 18:00 19:00 19:05 Temp 100.0 Pulse 79 75 79 Resp 20 B/P (MAP) 148/87 (107) 157/86 (109) 162/91 (114) Pulse Ox 93 94 94 95 O2 Delivery Room Air Room Air Room Air Room Air 10/16/18 00:00 Intake Total 1400 ml Output Total 2600 ml Balance -1200 ml Weight (Pounds): 244 Weight (Ounces): 0.0 Weight (Calculated Kilograms): 110.486856 Constitutional: appears stated age, AAO x 3; No apparent distress; well- developed, well-nourished Respiratory: chest is bilaterally symmetric, lungs clear to auscultation Cardiovascular: regular rate-rhythm, S1 and S2, systolic murmur (faint LORENA at card base) Gastrointestional: No tender, No soft, No round, No distended, No pulsatile mass, No organomegaly, No guarding, No rebound, No tenderness, No hernia, No mass; audible bowel sounds; No abnormal bowel sounds, No abdominal bruits, No spleenomegaly, No other Extremities: No normal range of motion, No non-tender, No normal inspection, No pedal edema, No calf tenderness, No normal capillary refill, No pelvis stable , No calf tenderness, No inflammation, No pedal edema, No slow capillary refill , No swelling, No other, No abrasion, No clubbing, No cyanosis, No ecchymosis, No laceration, No no lower extremity edema bilateral, No significant edema, No tenderness, No wound Neurologic/Psychiatric: no motor/sensory deficits, alert, normal mood/affect, oriented x 3, power is 5/5 both on sides Skin: No rash on exposed areas, No ulcerations on exposed areas Results/Procedures: Labs Laboratory Tests 10/15/18 23:47: Glucometer 98 10/16/18 03:20: White Blood Count 7.5, Red Blood Count 4.70, Hemoglobin 14.5, Hematocrit 41, Mean Corpuscular Volume 86, Mean Corpuscular Hemoglobin 31, Mean Corpuscular Hemoglobin Concent 36, Red Cell Distribution Width 13.5, Platelet Count 165, Mean Platelet Volume 10.4, Neutrophils (%) (Auto) 74, Lymphocytes (%) (Auto) 14 , Monocytes (%) (Auto) 11, Eosinophils (%) (Auto) 1, Basophils (%) (Auto) 0, Neutrophils # (Auto) 5.5, Lymphocytes # (Auto) 1.0, Monocytes # (Auto) 0.8, Eosinophils # (Auto) 0.1, Basophils # (Auto) 0.0, Prothrombin Time 14.3, INR Comment 1.1, Sodium Level 140, Potassium Level 3.6, Chloride Level 109H, Carbon Dioxide Level 22, Anion Gap 9, Blood Urea Nitrogen 10, Creatinine 0.92, Estimat Glomerular Filtration Rate > 60, BUN/Creatinine Ratio 11, Glucose Level 104, Calcium Level 7.7L, Corrected Calcium 8.3L, Phosphorus Level 3.1, Magnesium Level 2.2, Total Bilirubin 1.0, Aspartate Amino Transf (AST/SGOT) 50H, Alanine Aminotransferase (ALT/SGPT) 96H, Alkaline Phosphatase 70, Troponin I 0.214H, B- Type Natriuretic Peptide 46.3, Total Protein 5.6L, Albumin 3.2 10/16/18 04:12: Blood Gas Puncture Site RIGHT RADIAL, Blood Gas Patient Temperature 98.7, Arterial Blood pH 7.41, Arterial Blood Partial Pressure CO2 38, Arterial Blood Partial Pressure O2 81, Arterial Blood HCO3 23, Arterial Blood Total CO2 24.6, Arterial Blood Oxygen Saturation 97, Arterial Blood Base Excess -0.7, Truong Test YES-POS, Blood Gas Ventilator Setting YES, Blood Gas Inspired Oxygen 30% 10/16/18 05:15: Blood Gas Puncture Site RIGHT RADIAL, Blood Gas Patient Temperature 98.0, Arterial Blood pH 7.42, Arterial Blood Partial Pressure CO2 36, Arterial Blood Partial Pressure O2 72L, Arterial Blood HCO3 23, Arterial Blood Total CO2 23.9, Arterial Blood Oxygen Saturation 95, Arterial Blood Base Excess -1.1, Truong Test YES-POS, Blood Gas Ventilator Setting YES, Blood Gas Inspired Oxygen 30% Microbiology 10/15/18 MRSA Screen - Final, Complete MRSA not isolated A/P: Assessment/Dx: Sustained monomorphic VT, Cardiogenic shock Plan: Close examination of the EKG demonstrates monomorphic sustained ventricular tachycardia. Right-sided inferior posterior origin. Could be originating from the RV. Continue IV amiodarone and Cardizem. May need to consider changing to IV esmolol. Keep potassium over 4, magnesium over 2. Echocardiogram. Coronary angiography will be planned today to rule out CAD as cause of sustained ventricular tachycardia. Spoke to the about ICD for sustained symptomatic ventricular tachycardia. Patient once stable will likely require EP study and possible VT ablation. Cardiogenic shock: Resolved. Echocardiogram to check LV function. Thank you for your consultation. Please call me if you have any questions. Penny Sinclair MD, FACP, FACC, FSCAI, FHRS, CCDS Interventional Cardiology Cardiac Electrophysiology Vascular Medicine and Endovascular Interventions Focused Exam Lactate Level 10/15/18 15:48: Lactic Acid Level 1.13 Clinical Quality Measures AMI/AHF: ASA po Prior to arrival: Helio Swartz MD Oct 16, 2018 10:01
--- NOTE | 2018-10-16 10:18 | Diagnostic Imaging Report ---
INDICATION: Dyspnea. TECHNIQUE: Single view chest 3:26 AM. CORRELATION STUDY: 10/15/2018 FINDINGS: Endotracheal, gastric tube and right IJ central line remain in place. Heart size and mediastinum are stable. Vascular remains congested but is overall improved since prior study. Scattered pulmonary parenchymal densities noted particularly in the right mid and lower lung field do appear to be slightly increased, could be reflective of asymmetric distribution of edema versus a developing infiltrate and/or atelectasis. IMPRESSION: 1. Stable support lines and tubes. 2. The severity of pulmonary vascular congestion and edema has diminished and improved. 3. There is however increasing density of particularly the right mid lower lung field could be reflective of infiltrate, atelectasis and/or asymmetric distribution of edema. Dictated by: Dictated on workstation # [id number]
[2018-10-16] MEDS ORDERED: NS IV 1000 ML 1,000 ML ONE (10:55)
[2018-10-16] MEDS ORDERED: LIDOCAINE 1% INJ 20 ML 20 ML VIAL ONE (10:55)
[2018-10-16] MEDS ORDERED: fentaNYL INJECTION 100 MCG/2 ML AMP ONE (10:56)
[2018-10-16] MEDS ORDERED: MIDAZOLAM 5 MG/5 ML (VERSED) VIAL ONE (10:56)
[2018-10-16] MEDS ORDERED: HEParin (CATH LAB) 2,000 ML IV ONE (10:56)
--- NOTE | 2018-10-16 11:00 | NUR ---
Pastoral care visit.
--- NOTE | 2018-10-16 11:01 | NUR ---
Patient is having an ECHO done at this time
[2018-10-16] MEDS ORDERED: VERAPAMIL 5 MG/2 ML (CALAN) VIAL IV ONE (11:57)
[2018-10-16] MEDS ORDERED: HEParin 1000 UNIT/ML (10ML VIAL) FOR BOLUS ONE (11:57)
[2018-10-16] MEDS ORDERED: NITRO DRIP 25000 MCG/D5W 250 ML IV ONE (11:57)
[2018-10-16] MEDS ORDERED: NS IV 1000 ML 1,000 ML IV SCH (12:24)
--- NOTE | 2018-10-16 12:24 | Cardiac Procedure Note-CS/ASA ---
Pre-Procedure Note Pre-Op Procedure Note H&P Reviewed The H&P was reviewed, patient examined and no changes noted. Date H&P Reviewed: Oct 16, 2018 Time H&P Reviewed: 12:00 Conscious Sedation Pre-Proced Time 12:00 ASA Score 3 For ASA 3 and 4: Consider anesthesia and medical clearance. Also, for patients with a history of failed moderate sedation consider anesthesia. Airway Lungs Heart ASA score ASA 1: a normal healthy patient ASA 2: a patient with a mild systemic disease (mid diabetes, controlled hypertension, obesity ASA 3: a patient with a severe systemic disease that limits activity (angina , COPD, prior Myocardial infarction) ASA 4: a patient with an incapacitating disease that is a constant threat to life (CHF, renal failure) ASA 5: a moribund patient not expected to survive 24 hrs. (ruptured aneurysm) ASA 6: a declared brain- patient whose organs are being harvested. For emergent operations, add the letter E after the classification Mallampati Classification Grade 1 Sedation Plan Analgesia, Amnesia, Plan communicated to team members, Discussed options with patient/fam, Discussed risks with patient/fam The patient is an appropriate candidate to undergo the planned procedure, sedation, and anesthesia. The patient immediately re-assessed prior to indication. Helio TOMLINSON MD Oct 16, 2018 12:24
--- NOTE | 2018-10-16 12:24 | Coronary Angiography Report ---
Coronary Angiography Report DATE OF PROCEDURE: 10/16/18 INDICATION: Sustained ventricular tachycardia. PREOPERATIVE DIAGNOSIS: Sustained ventricular tachycardia. POSTOPERATIVE DIAGNOSIS: Patent epicardial coronary arteries. HISTORY: This is a 53-year-old gentleman who presented with sustained ventricular tachycardia Therefore, the patient was scheduled for coronary angiography. PROCEDURES PERFORMED: 1.Coronary angiography. 2.Left heart catheterization. COMPLICATIONS: None. SPECIMENS: None. ESTIMATED BLOOD LOSS: 10 mL ANESTHESIA: Conscious sedation ANTICOAGULATION: IV heparin CONTRAST: 52 mL. FLUOROSCOPY: 3.0 minutes. FLOUROSCOPY DOSE: [id number]. PROCEDURE DETAILS: The patient is a 52 male and was brought to the curb and gutter laborer after informed consent was taken. All the risks and complications were explained in detail; this included the risk of bleeding, vascular damage, stroke , GA and even . The patient was draped and prepped in the usual sterile fashion. Access was gained in the right radial artery with a 6 [place] sheath. Coronary angiography and left heart catheterization was performed with the Fields catheter. FINDINGS: 1.Left main: Patent. 2.LAD: Patent. 3.Left circumflex artery: patent. 4.RCA: Patent. 5.Left heart catheterization: LV pressure 124/3 mmHg. LVEDP 8 mmHg. Aortic pressure 109/73 mmHg. Normal LV function with no wall motion abnormalities. No gradient across the aortic valve. CONCLUSIONS: Patent epicardial coronary arteries. Penny Sinclair MD, FACP, FACC, [facility] Interventional Cardiology Helio SINCLAIR MD Oct 16, 2018 12:24
[2018-10-16] MEDS ORDERED: PATIENT MAY USE OWN MEDS, ALL PO SCH (12:30)
[2018-10-16] MEDS: DILTIAZEM INJECTION 125 MG in NS (IVPB) 100 ML IV SCH (15:17)
[2018-10-16] MEDS ORDERED: DILTIAZEM 240 MG (CARDIZEM CD) CAP PO SCH (19:43)
[2018-10-16] MEDS: ACETAMINOPHEN 325 MG TABLET PO PRN (20:01)
[2018-10-16] MEDS: DILTIAZEM 240 MG (CARDIZEM CD) CAP PO SCH (20:02)
[2018-10-17] VITALS (24 sets, daily range): BP systolic 106–168; BP diastolic 66–102
[2018-10-17] MEDS: RT-ALBUTEROL SULF 2.5 MG/3 ML PRE-MIX VIAL INH SCH ×6 (01:46→22:08)
[2018-10-17 03:49] LABS: BASOPHILS % (AUTO) 0 % (0-10); EOSINOPHILS # (AUTO) 0.1 10^3/uL (0.0-0.3); EOSINOPHILS % (AUTO) 2 % (0-10); HEMATOCRIT 37 % (40-54); HEMOGLOBIN 13.5 G/DL (13.3-17.7); LYMPHOCYTES # (AUTO) 0.9 X 10^3 (1.0-4.0); LYMPHOCYTES % (AUTO) 19 % (12-44); MEAN CORPUSCULAR HEMOGLOBIN 31 PG (25-34); MEAN CORPUSCULAR HGB CONC 36 G/DL (32-36); MEAN CORPUSCULAR VOLUME 86 FL (80-99); MEAN PLATELET VOLUME 10.1 FL (7.4-10.4); MONOCYTES # (AUTO) 0.6 X 10^3 (0.0-1.0); MONOCYTES % (AUTO) 13 % (0-12); NEUTROPHILS # (AUTO) 3.2 X 10^3 (1.8-7.8); NEUTROPHILS % (AUTO) 67 % (42-75); PLATELET COUNT 118 10^3/uL (130-400); RED CELL DISTRIBUTION WIDTH 12.6 % (10.0-14.5); WHITE BLOOD COUNT 4.8 10^3/uL (4.3-11.0)
[2018-10-17 04:21] LABS: BUN/CREATININE RATIO 9; CALCIUM 7.9 MG/DL (8.5-10.1); CARBON DIOXIDE 23 MMOL/L (21-32); CHLORIDE 108 MMOL/L (98-107); GFR ESTIMATED > 60; GLUCOSE 101 MG/DL (70-105); PHOSPHORUS 3.2 MG/DL (2.3-4.7); POTASSIUM 3.1 MMOL/L (3.6-5.0); SODIUM 140 MMOL/L (135-145)
--- NOTE | 2018-10-17 05:12 | NUR ---
Unable to get a patient weight in the bed at this time
[2018-10-17] MEDS: POTASSIUM CL 10MEQ/50ML IVPB 50 ML IV SCH ×5 (05:13→09:30)
[2018-10-17] MEDS: KCL 20 MEQ TAB (K-DUR) PO SCH (05:14)
[2018-10-17] MEDS: MAGNESIUM 1 GM/100 ML IVPB 100 ML IV SCH (05:14)
--- NOTE | 2018-10-17 05:48 | Pulmonary Progress Note ---
Subjective Time Seen by a Provider: 05:56 Subjective/Events-last exam Pt is doing well off ventilator. Sepsis Event Evaluation Height, Weight, BMI Height: 5'10.00" Weight: 244lbs. 0.0oz. 110.738108vz; 35.0 BMI Method:Stated Focused Exam Lactate Level 10/15/18 15:48: Lactic Acid Level 1.13 Exam Exam Vital Signs Date Time Temp Pulse Resp B/P (MAP) Pulse Ox O2 Delivery O2 Flow Rate FiO2 10/17/18 04:00 60 25 141/84 (103) 97 Nasal Cannula 2.00 10/17/18 03:50 98 Nasal Cannula 2.00 10/17/18 03:30 97.7 10/17/18 03:00 67 15 147/90 (109) 97 Nasal Cannula 2.00 10/17/18 02:00 64 26 135/80 (98) 96 Nasal Cannula 2.00 10/17/18 01:46 94 Nasal Cannula 2.00 10/17/18 01:00 60 25 135/82 (99) 96 Nasal Cannula 2.00 10/17/18 01:00 63 10/17/18 01:00 62 10/17/18 00:00 64 25 146/86 (106) 94 Nasal Cannula 2.00 10/16/18 23:49 67 10/16/18 23:35 99.3 Nasal Cannula 2.00 10/16/18 23:15 97 Room Air 10/16/18 23:00 141/84 (103) 93 Room Air 10/16/18 22:00 134/82 (99) 99 Room Air 10/16/18 21:57 92 Nasal Cannula 2.00 10/16/18 21:00 147/91 (109) 92 Room Air 10/16/18 20:00 159/89 (112) 94 Room Air 10/16/18 19:05 95 Room Air 10/16/18 19:00 100.0 79 20 162/91 (114) 94 Room Air 10/16/18 18:00 75 157/86 (109) 94 Room Air 10/16/18 17:00 79 148/87 (107) 93 Room Air 10/16/18 16:00 94 Room Air 10/16/18 16:00 85 14 147/80 (102) 93 Room Air 10/16/18 15:00 84 30 146/83 (104) 93 Room Air 10/16/18 14:36 97 Room Air 10/16/18 14:30 71 10 142/83 (102) 93 Room Air 10/16/18 13:03 75 10/16/18 13:00 72 19 130/80 (97) 96 Room Air 10/16/18 12:52 95 Room Air 10/16/18 12:00 97.6 10/16/18 11:01 Room Air 10/16/18 11:00 65 14 125/70 (88) 97 Room Air 10/16/18 10:00 65 14 125/70 (88) 97 Nasal Cannula 2.00 10/16/18 09:00 67 13 122/87 (99) 98 Nasal Cannula 2.00 10/16/18 08:00 64 26 112/59 (76) 95 Nasal Cannula 2.00 10/16/18 08:00 98 Nasal Cannula 2.00 10/16/18 08:00 99.1 10/16/18 07:30 Nasal Cannula 2.00 10/16/18 07:14 94 Nasal Cannula 3.00 10/16/18 07:00 61 23 109/64 (79) 93 Nasal Cannula 2.00 10/16/18 07:00 61 10/16/18 06:20 Nasal Cannula 2.00 10/16/18 06:05 Nasal Cannula 3.00 10/16/18 06:05 Nasal Cannula 3.00 10/16/18 06:00 54 20 118/73 (88) 97 Mechanical Ventilator 30.00 I & O 10/17/18 06:59 Intake Total 2620 ml Output Total 4725 ml Balance -2105 ml Height & Weight Height: 5'10.00" Weight: 244lbs. 0.0oz. 110.310113nk; 35.0 BMI Method:Stated General Appearance: No Apparent Distress, WD/WN Neck: Other (central line in place) Respiratory: Lungs Clear, Normal Breath Sounds Cardiovascular: Regular Rate, Rhythm, No Murmur Capillary Refill: Less Than 3 Seconds Extremity: Normal Inspection, No Pedal Edema Neurologic/Psychiatric: Alert, Oriented x3, Normal Mood/Affect Skin: Normal Color Lymphatic: No Adenopathy Results Lab Laboratory Tests 10/15/18 09:54 10/15/18 15:48 10/16/18 03:20 10/17/18 03:46 Assessment/Plan Assessment/Plan S/P Acute respiratory failure -S/P vent -PT is doing well off ventilator S/P Sustained V tach -Cardiology following - Digoxin, amio -Plan is for AICD today Elevated LFTs - improving -Monitor Probable DANIA, Witnessed apena and nocturnal hypoxia per SUPERINTENDENT GENERAL, Mallampati of 4 -Pt needs out patient PSG -Currently requiring 2 liters at night. JERALD BRANTLEY DO Oct 17, 2018 05:48
--- NOTE | 2018-10-17 07:28 | Diagnostic Imaging Report ---
INDICATION: Respiratory failure. Portable chest 2:56 AM FINDINGS: Right jugular PICC line tip projects over the SVC. Heart size and pulmonary vascularity are normal. Lungs are clear. There are no effusions or pneumothoraces. IMPRESSION: No acute abnormalities in the chest. Dictated by: Dictated on workstation # [id number]
--- NOTE | 2018-10-17 08:02 | Progress Note-Hospitalist ---
Subjective HPI/CC On Admission Date Seen by Provider: Oct 17, 2018 Time Seen by Provider: 07:54 Pt is a 52yoCM with a PMH of sustained v-tach who presented to the ER due to chest tightness and pain. He is unable to provide any history as he is sedated and intubated. All history from records and bedside report from ED Physician. He reported had a similar episode of v-tach that was refractory to standard treatment and was cared for by a sales support representative in [place]. Today he presented and was found to have a heart rate of 240 with a wide complex rhythm with a pulse. He was given escalating doses of adenosine without improvement. he was hypertensive on arrival as well. He was shocked a total of 4 times to attempt to convert him but these were unsuccessful. He was then given amiodarone bolus and started on a gtt. He was treated with an esmolol bolus as well. These were unsuccessful. Dr Romero of cardiology services came to bedside. He was given lidocaine as well. He then became hypotensive and was treated with 3L of IVF. Following fluid resuscitation he developed frothy sputum and hypoxia and was emergently intubated. He remained hypotensive with intubation and his sedation was switched from propofol to precedex. He was started on a cardizem gtt as well. When I arrived to bedside Dr Trimble was placing a central line and Dr Moser was at bedside as well. Shortly after central line placement his rhythm converted to sinus in the 60s. Currently he is on levophed and cardizem gtt for pressure and rate control. He is intubated with a PEEP of 14 to maintain oxygen saturations. He is to be transferred to the ICU. Subjective/Events-last exam Pt reports feeling well. Has a few questions about possible defibrillator placement. Per notes had an episode of apnea overnight. Focused Exam Lactate Level 10/15/18 15:48: Lactic Acid Level 1.13 Objective Exam Vital Signs Vital Signs Date Time Temp Pulse Resp B/P (MAP) Pulse Ox O2 Delivery O2 Flow Rate FiO2 10/17/18 07:11 97 Nasal Cannula 2.00 10/17/18 06:00 62 23 154/84 (107) 10/17/18 03:30 97.7 10/16/18 04:07 30 Capillary Refill : Less Than 3 Seconds General Appearance: No Apparent Distress, WD/WN, Obese Neck: Other (central line in place) Respiratory: Lungs Clear, Normal Breath Sounds Cardiovascular: Regular Rate, Rhythm, No Murmur Gastrointestinal: Non Tender, Soft Extremity: Normal Inspection, No Pedal Edema Neurologic/Psychiatric: Alert, Oriented x3, Normal Mood/Affect Results/Procedures Lab Laboratory Tests 10/17/18 03:46 Patient resulted labs reviewed. Imaging: Reviewed Imaging Report Assessment/Plan Assessment and Plan Assess & Plan/Chief Complaint Sustained V-tach Diagnosis/Problems Diagnosis/Problems (1) Sustained ventricular tachycardia Assessment & Plan: Failed multiple attempts at conversion in the ER Ultimately converted during central line placement Cardiac cath done yesterday- per placement no interventions Currently controlled with Diltiazem Cardiology consulted, appreciate recs Keep K >4 and Mg >2 (2) Cardiogenic shock Status: Resolved Assessment & Plan: Cardiology consulted Echo reveals preserved EF with PA pressure of 25 Repeat echo pending as first echo was done in ER for rapid evaluation Resolution Date/Time: 10/17/18 @ 07:57 (3) Acute respiratory failure Status: Resolved Assessment & Plan: Extubated 10/16 Currently on 2lpm Pulm consulted, appreciate recs Qualifiers: Respiratory failure complication: hypoxia Qualified Codes: J96.01 - Acute respiratory failure with hypoxia Resolution Date/Time: 10/16/18 @ 08:03 (4) Transaminitis Assessment & Plan: Mild elevation, likely due to poor perfusion from v-tach, improving today Also pt obese so may have DEL RIO at baseline (5) Sleep apnea Assessment & Plan: apneic event witnessed by RN overnight Dr Moser wants to attempt to arrange inpatient sleep study or discharge immediately to sleep lab for study Qualifiers: Sleep apnea type: unspecified type Qualified Codes: G47.30 - Sleep apnea, unspecified Clinical Quality Measures AMI/AHF: ASA po Prior to arrival: No DVT/VTE Risk/Contraindication: Risk Factor Score Per Nursin RFS Level Per Nursing on Admit: 3=High KAL INGACIO MD Oct 17, 2018 08:01
[2018-10-17] MEDS: PANTOPRAZOLE 40 MG (PROTONIX) VIAL IV SCH (08:26)
[2018-10-17] MEDS: DILTIAZEM 240 MG (CARDIZEM CD) CAP PO SCH (08:26)
--- NOTE | 2018-10-17 11:16 | Cardiology Progress Note ---
Cardiology SOAP Progress Note Subjective: No cardiac symptoms. No further VT. Objective: I&O/Vital Signs 10/17/18 10/17/18 10/17/18 10/17/18 06:00 07:00 07:00 07:11 Pulse 62 56 66 Resp 23 20 B/P (MAP) 154/84 (107) 168/100 (122) Pulse Ox 95 96 97 O2 Delivery Nasal Cannula Nasal Cannula Nasal Cannula O2 Flow Rate 2.00 2.00 2.00 10/17/18 10/17/18 10/17/18 10/17/18 08:00 08:20 09:00 10:54 Pulse 63 64 Resp 25 10 B/P (MAP) 138/80 (99) 137/81 (99) Pulse Ox 97 98 98 O2 Delivery Nasal Cannula Room Air Nasal Cannula Room Air O2 Flow Rate 2.00 2.00 10/17/18 10/17/18 10/17/18 10/17/18 11:00 12:02 12:35 13:00 Pulse 61 69 B/P (MAP) 136/78 (97) 106/66 (79) Pulse Ox 97 96 98 O2 Delivery Nasal Cannula Nasal Cannula Room Air O2 Flow Rate 2.00 2.00 10/17/18 10/17/18 13:00 14:00 Temp 99.3 Pulse 66 68 B/P (MAP) 125/78 (94) 123/81 (95) Pulse Ox 97 96 O2 Delivery Nasal Cannula Nasal Cannula O2 Flow Rate 2.00 2.00 10/17/18 00:00 Intake Total 1440 ml Output Total 2325 ml Balance -885 ml Weight (Pounds): 244 Weight (Ounces): 0.0 Weight (Calculated Kilograms): 110.056134 Constitutional: appears stated age, AAO x 3; No apparent distress; well- developed, well-nourished Respiratory: chest is bilaterally symmetric, lungs clear to auscultation Cardiovascular: regular rate-rhythm, S1 and S2, systolic murmur (faint [place] at card base) Gastrointestional: No tender, No soft, No round, No distended, No pulsatile mass, No organomegaly, No guarding, No rebound, No tenderness, No hernia, No mass; audible bowel sounds; No abnormal bowel sounds, No abdominal bruits, No spleenomegaly, No other Extremities: No normal range of motion, No non-tender, No normal inspection, No pedal edema, No calf tenderness, No normal capillary refill, No pelvis stable , No calf tenderness, No inflammation, No pedal edema, No slow capillary refill , No swelling, No other, No abrasion, No clubbing, No cyanosis, No ecchymosis, No laceration, No no lower extremity edema bilateral, No significant edema, No tenderness, No wound Neurologic/Psychiatric: no motor/sensory deficits, alert, normal mood/affect, oriented x 3, power is 5/5 both on sides Skin: No rash on exposed areas, No ulcerations on exposed areas Results/Procedures: Labs Laboratory Tests 10/17/18 03:46: White Blood Count 4.8, Red Blood Count 4.36, Hemoglobin 13.5, Hematocrit 37L, Mean Corpuscular Volume 86, Mean Corpuscular Hemoglobin 31, Mean Corpuscular Hemoglobin Concent 36, Red Cell Distribution Width 12.6, Platelet Count 118L, Mean Platelet Volume 10.1, Neutrophils (%) (Auto) 67, Lymphocytes (%) (Auto) 19 , Monocytes (%) (Auto) 13H, Eosinophils (%) (Auto) 2, Basophils (%) (Auto) 0, Neutrophils # (Auto) 3.2, Lymphocytes # (Auto) 0.9L, Monocytes # (Auto) 0.6, Eosinophils # (Auto) 0.1, Basophils # (Auto) 0.0, Sodium Level 140, Potassium Level 3.1L, Chloride Level 108H, Carbon Dioxide Level 23, Anion Gap 9, Blood Urea Nitrogen 7, Creatinine 0.80, Estimat Glomerular Filtration Rate > 60, BUN/ Creatinine Ratio 9, Glucose Level 101, Calcium Level 7.9L, Phosphorus Level 3.2 , Magnesium Level 2.0 Microbiology 10/15/18 MRSA Screen - Final, Complete MRSA not isolated A/P: Assessment/Dx: Sustained monomorphic VT, Cardiogenic shock Plan: Close examination of the EKG demonstrates monomorphic sustained ventricular tachycardia. Right-sided inferior posterior origin. Could be originating from the RV. Change to PO amiodarone and PO metoprolol. Keep potassium over 4, magnesium over 2. Echocardiogram. Coronary angiography showed patent epicardial coronary arteries. ICD planned today. Informed consent taken. Patient once stable will likely require EP study and possible VT ablation. Cardiogenic shock: Resolved. Echocardiogram to check LV function. Thank you for your consultation. Please call me if you have any questions. Penny Sinclair MD, FACP, FACC, FSCAI, FHRS, CCDS Interventional Cardiology Cardiac Electrophysiology Vascular Medicine and Endovascular Interventions Focused Exam Lactate Level 10/15/18 15:48: Lactic Acid Level 1.13 Clinical Quality Measures AMI/AHF: ASA po Prior to arrival: Helio Swartz MD Oct 17, 2018 11:16 am
--- NOTE | 2018-10-17 11:17 | Cardiac Procedure Note-CS/ASA ---
Pre-Procedure Note Pre-Op Procedure Note H&P Reviewed The H&P was reviewed, patient examined and no changes noted. Date H&P Reviewed: Oct 17, 2018 Time H&P Reviewed: 08:30 Conscious Sedation Pre-Proced Time 08:30 ASA Score 3 For ASA 3 and 4: Consider anesthesia and medical clearance. Also, for patients with a history of failed moderate sedation consider anesthesia. Airway Lungs Heart ASA score ASA 1: a normal healthy patient ASA 2: a patient with a mild systemic disease (mid diabetes, controlled hypertension, obesity ASA 3: a patient with a severe systemic disease that limits activity (angina , COPD, prior Myocardial infarction) ASA 4: a patient with an incapacitating disease that is a constant threat to life (CHF, renal failure) ASA 5: a moribund patient not expected to survive 24 hrs. (ruptured aneurysm) ASA 6: a declared brain- patient whose organs are being harvested. For emergent operations, add the letter E after the classification Mallampati Classification Grade 1 Sedation Plan Analgesia, Amnesia, Plan communicated to team members, Discussed options with patient/fam, Discussed risks with patient/fam The patient is an appropriate candidate to undergo the planned procedure, sedation, and anesthesia. The patient immediately re-assessed prior to indication. Helio TOMLINSON MD Oct 17, 2018 11:16
[2018-10-17] MEDS ORDERED: BACITRACIN INJECTION 50,000 UNIT, SODIUM CHLORIDE 0.9% IRRIGATIO 500 ML IR ONE ×2 (12:30)
[2018-10-17] MEDS ORDERED: ceFAZolin INJECTION 1,000 MG VIAL IV ONE (12:30)
[2018-10-17] MEDS ORDERED: ceFAZolin INJECTION 1,000 MG in WATER (STERILE) FOR INJECTION 10 ML IV ONE (12:45)
[2018-10-17] MEDS ORDERED: NS IV 1000 ML 1,000 ML ONE ×3 (13:39→16:40)
[2018-10-17] MEDS ORDERED: HEParin 1000 UNIT/ML (10ML VIAL) FOR BOLUS ONE (13:39)
[2018-10-17] MEDS ORDERED: LIDOCAINE 1% INJ 20 ML 20 ML VIAL ONE (13:39)
[2018-10-17] MEDS ORDERED: fentaNYL INJECTION 100 MCG/2 ML AMP ONE (14:27)
[2018-10-17] MEDS ORDERED: MIDAZOLAM 5 MG/5 ML (VERSED) VIAL ONE ×2 (14:27→14:29)
[2018-10-17] MEDS: DILTIAZEM INJECTION 125 MG in NS (IVPB) 100 ML IV SCH (14:50)
--- NOTE | 2018-10-17 15:00 | NUR ---
PT TO [facility]ART CENTER VIA BED ACCOMPANIED BY HEART CENTER STAFF AND FAMILY.
[2018-10-17] MEDS ORDERED: diphenhydrAMINE 50 MG/ML INJ (BENADRYL) ONE (15:24)
[2018-10-17] MEDS ORDERED: proPOfol 200 MG/20 ML (DIPRIVAN) VIAL IV ONE (16:11)
[2018-10-17] MEDS ORDERED: NEO/POLY/BAC (NEOSPORIN) OINT 15 GM TUBE ONE (16:44)
--- NOTE | 2018-10-17 16:46 | Anesthesia-Procedure Note ---
Procedures/Interventions Procedure Start/Stop/Diagnosis Date of Procedure: Oct 17, 2018 Start Time: 16:15 Referring Physician: Yahir Preprocedural Diagnosis: V-Tach Brief History Called to ammunition assembly i laborer to provide sedation for AICD device check. Pt was sedated already by RN with Versed and Fentanyl. O2 per mask applied, monitors and all emergency equipment verified. Pt received a total of 50 mg propofol. No complications reported. VSS. Left pt in care of RN with report SV. ASA 3. Stop Time: 16:35 Postprocedural Diagnosis: V-Tach CINTIA PINON CRNA Oct 17, 2018 16:46
[2018-10-17] MEDS ORDERED: NS IV 1000 ML 1,000 ML IV SCH (16:58)
--- NOTE | 2018-10-17 16:58 | ICD Implantation ---
Single Chamber ICD Implant DATE OF SERVICE: 10/17/2018 SINGLE CHAMBER ICD IMPLANTATION REFERRING PHYSICIAN: Talia Myrick MD CARDIAC HARNESS FITTER: Penny Sinclair MD INDICATION: Hemodynamically unstable Sustained monomorphic VT; secondary prevention of sudden cardiac . PREOPERATIVE DIAGNOSES: Hemodynamically unstable Sustained monomorphic VT; secondary prevention of sudden cardiac . POSTOPERATIVE DIAGNOSES: Successful single-chamber ICD placed. HISTORY: This is a 52-year-old gentleman with no significant post cardiac history who presented with hemodynamically unstable sustained monomorphic VT. External synchronized cardioversion was unsuccessful. Patient was loaded with amiodarone , lidocaine and started on Cardizem infusion. Patient subsequently converted to sinus rhythm. Frequent PVCs were noted which were of same morphology as the VT. Also brief R on T phenomenon was also noted. ICD implantation is recommended. PROCEDURE PERFORMED: 1. Single-chamber ICD implantation. 2. Central venous access. 3. Fluoroscopy. 4. DFT testing. COMPLICATIONS: None. ESTIMATED BLOOD LOSS: 20 mL. SPECIMENS: None. ANESTHESIA: Conscious sedation. ORAL ANTICOAGULATION: None. FLUOROSCOPY TIME: 2.6 min. FLUOROSCOPY DOSE: 55 mgy. CONTRAST DOSE: none PROCEDURE DETAILS: After all the questions were answered, an informed consent was taken. All the risks and complication were explained in detail. The patient was brought to the EP lab. The patient's right and left chest was prepped and draped in the usual sterile fashion. A 2-inch horizontal incision was made 1 cm below the clavicle and dissection carried down to the pectoralis fascia. IV antibiotics were administered prior to first incision. Under fluoroscopic guidance, access was gained in the axillary vein and a regular J-wire was placed. We then introduced a sheath into the axillary vein. A ICD lead was inserted. This is a dual-coiled ICD lead. The RV lead was inserted across the tricuspid valve to an apical septal portion of the RV. The lead position was checked in CZECH and ALVAREZ view. The screw was deployed and lead connected to the clinical statistical programmer. Good sensing and pacing thresholds were obtained. Diaphragmatic pacing was ruled out. The lead was secured with 2-0 Vicryl nonabsorbable sutures. The lead was secured to the underlying muscle and fascia. We then took an ICD generator and the lead was connected to the device in a hermetic fashion. The device and it was placed in the pocket. Aggressive irrigation with normal saline solution was done. Interrogation of the device revealed good integrity of the leads and connection. The wound was closed using 2 layers. The first layer was an interrupted 2-0 Vicryl. The second layer was an uninterrupted 4-0 Vicryl suture. Half inch Steri-Strips and a small dressing was then applied to the wound. DFT testing was done with anesthesia support. The induction mechanism was a T- shock. Successful defibrillation with a 25 J internal shock. Patient tolerated the procedure well and did not have any complications. DEVICE INFORMATION: Medtronic ICD-VR VISIA MRI AF S US/OUS DF4. Model number [id number]. Serial number [id number]. RV lead model number [id number]. Length 62. Serial number [id number]. INTRAOPERATIVE DEVICE TESTING: Capture threshold 0.4 V at 0.5 ms. Impedance 633 ohms. R-wave 8.3 mV. DEVICE INTERROGATION IMMEDIATELY POSTOP: RV capture threshold 0.5 V at 0.4 ms. Pacing impedance 418 ohms. R-wave 7.3 mV. HVB Imp 53 ohms. HVX Imp 51ohms. PLAN: The patient will be observed for 23 hours. We will continue with two more dosages of IV antibiotics. We will check a chest x-ray and interrogate the device in the morning. An EKG will be done as well. If everything checks out, the patient will be discharged tomorrow. Penny Sinclair MD, [facility], CCDS Cardiac Electrophysiology Helio SINCLAIR MD Oct 17, 2018 16:57
[2018-10-17] MEDS ORDERED: PATIENT MAY USE OWN MEDS, ALL PO SCH (17:00)
--- NOTE | 2018-10-17 18:04 | NUR ---
1731 PT BACK TO ROOM ICU 10 VIA BED, REPORT RECEIVED FROM Kannan LIVINGSTON RN. DRESSING TO LEFT UPPER CHEST D/I WITH EDEMA NOTED AT SITE. COLD PACK APPLIED, AND SLING APPLIED TO LEFT ARM. , PERIPHERAL PULSES +/+. ALMONTE D/C WITH Kannan ARMIJO RN WITH 830 CC OF CLEAR YELLOW URINE NOTED. PT VOICES NO C/O OF PAIN, NO NEEDS NOTED AT THIS TIME, CALL LIGHT AND OTHER PERSONAL ITEMS WITHIN REACH WILL CONTINUE TO MONITOR.
--- NOTE | 2018-10-17 18:23 | Diagnostic Imaging Report ---
INDICATION: Pacemaker placement. COMPARISON: 10/17/2018 at 2:56 a.m. EXAMINATION: Single view of the chest was obtained. FINDINGS: Interval placement of a single lead pacemaker. There is no postprocedure pneumothorax. The right IJ catheter is stable. The heart is prominent with stable central vascular congestion. IMPRESSION: No postprocedure pneumothorax. Dictated by: Dictated on workstation # [id number]
[2018-10-17] MEDS: ceFAZolin INJECTION 1,000 MG in WATER (STERILE) FOR INJECTION 10 ML IV SCH (20:09)
[2018-10-17] MEDS: ACETAMINOPHEN 325 MG TABLET PO PRN (20:09)
[2018-10-17] MEDS ORDERED: AMIODARONE 200 MG (CORDARONE) TAB PO SCH (21:00)
[2018-10-17] MEDS ORDERED: meTOprolol TARTRATE 50 MG (LOPRESSOR) TAB PO SCH (21:00)
[2018-10-18] VITALS (8 sets, daily range): BP systolic 117–148; BP diastolic 74–96
[2018-10-18] MEDS: ceFAZolin INJECTION 1,000 MG in WATER (STERILE) FOR INJECTION 10 ML IV SCH (01:28)
[2018-10-18] MEDS: ACETAMINOPHEN 325 MG TABLET PO PRN (03:07)
[2018-10-18] MEDS: RT-ALBUTEROL SULF 2.5 MG/3 ML PRE-MIX VIAL INH SCH ×3 (03:28→11:42)
[2018-10-18 03:35] LABS: HEMATOCRIT 40 % (40-54); HEMOGLOBIN 14.4 G/DL (13.3-17.7); LYMPHOCYTES % (AUTO) 15 % (12-44); MEAN CORPUSCULAR HEMOGLOBIN 31 PG (25-34); MEAN CORPUSCULAR HGB CONC 37 G/DL (32-36); MEAN CORPUSCULAR VOLUME 86 FL (80-99); MEAN PLATELET VOLUME 10.3 FL (7.4-10.4); NEUTROPHILS % (AUTO) 67 % (42-75); PLATELET COUNT 167 10^3/uL (130-400); RED CELL DISTRIBUTION WIDTH 13.1 % (10.0-14.5); WHITE BLOOD COUNT 5.7 10^3/uL (4.3-11.0)
[2018-10-18 03:36] LABS: BASOPHILS % (AUTO) 1 % (0-10); EOSINOPHILS # (AUTO) 0.2 10^3/uL (0.0-0.3); EOSINOPHILS % (AUTO) 3 % (0-10); LYMPHOCYTES # (AUTO) 0.9 X 10^3 (1.0-4.0); MONOCYTES # (AUTO) 0.8 X 10^3 (0.0-1.0); MONOCYTES % (AUTO) 15 % (0-12); NEUTROPHILS # (AUTO) 3.9 X 10^3 (1.8-7.8)
[2018-10-18 04:02] LABS: ALANINE AMINOTRANSFERASE 60 U/L (0-55); ALBUMIN 3.6 GM/DL (3.2-4.5); ALKALINE PHOSPHATASE 88 U/L (40-136); BILIRUBIN,TOTAL 0.8 MG/DL (0.1-1.0); BUN/CREATININE RATIO 11; CALCIUM 8.6 MG/DL (8.5-10.1); CARBON DIOXIDE 22 MMOL/L (21-32); CHLORIDE 109 MMOL/L (98-107); CREATININE SERUM 0.83 MG/DL (0.60-1.30); GFR ESTIMATED > 60; GLUCOSE 89 MG/DL (70-105); MAGNESIUM 2.2 MG/DL (1.8-2.4); PHOSPHORUS 3.7 MG/DL (2.3-4.7); SODIUM 140 MMOL/L (135-145); TOTAL PROTEIN 6.5 GM/DL (6.4-8.2)
[2018-10-18] MEDS: POTASSIUM CL 10MEQ/50ML IVPB 50 ML IV SCH (04:14)
[2018-10-18] MEDS: MAGNESIUM 1 GM/100 ML IVPB 100 ML IV SCH (04:14)
[2018-10-18] MEDS: KCL 20 MEQ TAB (K-DUR) PO SCH (04:14)
--- NOTE | 2018-10-18 06:02 | Pulmonary Progress Note ---
Subjective Time Seen by a Provider: 06:03 Subjective/Events-last exam Pt is doing better. Sepsis Event Evaluation Height, Weight, BMI Height: 5'10.00" Weight: 244lbs. 0.0oz. 110.033314ie; 35.0 BMI Method:Stated Focused Exam Lactate Level 10/15/18 15:48: Lactic Acid Level 1.13 Exam Exam Vital Signs Date Time Temp Pulse Resp B/P (MAP) Pulse Ox O2 Delivery O2 Flow Rate FiO2 10/18/18 05:05 51 10 128/79 (95) 96 Nasal Cannula 2.00 10/18/18 04:09 62 25 148/95 (112) 95 Nasal Cannula 2.00 10/18/18 03:29 99 Room Air 2.00 10/18/18 03:10 97 Nasal Cannula 2.00 10/18/18 03:05 97.2 51 22 131/95 (107) 97 Nasal Cannula 2.00 10/18/18 01:42 52 25 137/79 (98) 95 Nasal Cannula 2.00 10/18/18 00:00 57 28 134/87 (103) 97 Nasal Cannula 2.00 10/17/18 23:25 98.6 Nasal Cannula 2.00 10/17/18 23:25 97 Nasal Cannula 2.00 10/17/18 23:00 68 17 136/79 (98) 97 Nasal Cannula 2.00 10/17/18 22:08 99 Room Air 2.00 10/17/18 22:00 97 24 139/80 (99) 96 Nasal Cannula 2.00 10/17/18 22:00 Nasal Cannula 2.00 10/17/18 21:00 64 27 130/76 (94) 97 Nasal Cannula 2.00 10/17/18 20:00 72 31 144/93 (110) 95 Nasal Cannula 2.00 10/17/18 19:50 98.4 71 17 142/88 (106) 96 Room Air 10/17/18 19:50 95 Room Air 10/17/18 19:00 79 10/17/18 19:00 77 28 142/88 (106) 95 Nasal Cannula 2.00 10/17/18 18:30 68 25 141/86 (104) 94 Nasal Cannula 2.00 10/17/18 18:15 67 15 154/92 (112) 100 Nasal Cannula 2.00 10/17/18 18:11 98 Room Air 10/17/18 18:00 72 13 124/102 (109) 95 Nasal Cannula 2.00 10/17/18 15:40 67 10 151/95 (113) 94 Nasal Cannula 2.00 10/17/18 14:00 68 123/81 (95) 96 Nasal Cannula 2.00 10/17/18 13:00 99.3 66 125/78 (94) 97 Nasal Cannula 2.00 10/17/18 13:00 69 10/17/18 12:35 98 Room Air 10/17/18 12:02 61 106/66 (79) 96 Nasal Cannula 2.00 10/17/18 11:00 136/78 (97) 97 Nasal Cannula 2.00 10/17/18 10:54 Room Air 10/17/18 09:00 64 10 137/81 (99) 98 Nasal Cannula 2.00 10/17/18 08:20 98 Room Air 10/17/18 08:00 63 25 138/80 (99) 97 Nasal Cannula 2.00 10/17/18 07:11 97 Nasal Cannula 2.00 10/17/18 07:00 66 10/17/18 07:00 56 20 168/100 (122) 96 Nasal Cannula 2.00 10/17/18 06:00 62 23 154/84 (107) 95 Nasal Cannula 2.00 I & O 10/18/18 07:00 Intake Total 1995 ml Output Total 3890 ml Balance -1895 ml Height & Weight Height: 5'10.00" Weight: 244lbs. 0.0oz. 110.867956eu; 35.0 BMI Method:Stated General Appearance: No Apparent Distress, WD/WN, Obese Neck: Other (central line in place) Respiratory: Lungs Clear, Normal Breath Sounds Cardiovascular: Regular Rate, Rhythm, No Murmur Capillary Refill: Less Than 3 Seconds Extremity: Normal Inspection, No Pedal Edema Neurologic/Psychiatric: Alert, Oriented x3, Normal Mood/Affect Results Lab Laboratory Tests 10/17/18 03:46 10/18/18 03:00 Assessment/Plan Assessment/Plan S/P Acute respiratory failure -S/P vent -PT is doing well off ventilator S/P Sustained V tach -Cardiology following - Digoxin, amio -Plan is for AICD today Elevated LFTs - improving -Monitor Probable DANIA, Witnessed apena and nocturnal hypoxia per DISTILLERY MANAGER, Alexsandraampati of 4 , Vtach, EDS -PT is scheduled for PSG tonight at 2000. -Currently requiring 2 liters at night. JERALD BRANTLEY DO Oct 18, 2018 06:02
[2018-10-18] MEDS ORDERED: METO50TA15 PO ×2 (07:42)
[2018-10-18] MEDS ORDERED: AMIO200T4 PO ×2 (07:42)
--- NOTE | 2018-10-18 07:47 | Discharge Summary-Hospitalist ---
Diagnosis/Chief Complaint Date of Admission Oct 15, 2018 at 13:10 Date of Discharge Discharge Date: Oct 18, 2018 Admission Diagnosis Sustained V tach Acute Respiratory Failure Discharge Diagnosis (1) Sustained ventricular tachycardia Assessment & Plan: Failed multiple attempts at conversion in the ER Ultimately converted during central line placement Cardiac cath done yesterday- per placement no interventions Currently controlled with Diltiazem Cardiology consulted, appreciate recs Keep K >4 and Mg >2 (2) Cardiogenic shock Status: Resolved Assessment & Plan: Cardiology consulted Echo reveals preserved EF with PA pressure of 25 Repeat echo pending as first echo was done in ER for rapid evaluation (3) Acute respiratory failure Status: Resolved Assessment & Plan: Extubated 10/16 Currently on 2lpm Pulm consulted, appreciate recs (4) Transaminitis Assessment & Plan: Mild elevation, likely due to poor perfusion from v-tach, improving today Also pt obese so may have DEL RIO at baseline (5) Sleep apnea Assessment & Plan: apneic event witnessed by RN overnight Dr Moser wants to attempt to arrange inpatient sleep study or discharge immediately to sleep lab for study Discharge Summary Procedures/Consulations Dr Moser- Leigh Sinclair- Cardiology/EP Discharge Physical Exam Allergies: Coded Allergies: No Known Drug Allergies (Unverified , 10/15/18) Vitals & I&Os Vital Signs Date Time Temp Pulse Resp B/P (MAP) Pulse Ox O2 Delivery O2 Flow Rate FiO2 10/18/18 11:42 95 Room Air 10/18/18 11:00 64 15 2.00 10/18/18 03:05 97.2 10/16/18 04:07 30 General Appearance: No Apparent Distress, WD/WN Hospital Course Pt was admitted due to sustained v-tach that was refractory to adenosine, cardizem, esmolo, digoxin, amiodarone, lidocaine, and defibrillation x4. He ultimatley converted during a central line placement to normal sinus rhythm. He was maintained on amiodarone orally. He underwent cardiac cath which revealed no lesions. He had a ICD placed on 10/[address] Sincliar. He was discharged home on amiodarone and diltiazem to follow up with Dr Sinclair in 2 weeks. Due to witnessed apnea during sleep Dr Moser arranged from outpatient sleep study to be done the evening of his discharge. He is to return to the hospital at 8pm this evening for sleep study. Labs (last 24 hrs) Laboratory Tests 10/18/18 03:00: White Blood Count 5.7, Red Blood Count 4.62, Hemoglobin 14.4, Hematocrit 40, Mean Corpuscular Volume 86, Mean Corpuscular Hemoglobin 31, Mean Corpuscular Hemoglobin Concent 37H, Red Cell Distribution Width 13.1, Platelet Count 167, Mean Platelet Volume 10.3, Neutrophils (%) (Auto) 67, Lymphocytes (%) (Auto) 15 , Monocytes (%) (Auto) 15H, Eosinophils (%) (Auto) 3, Basophils (%) (Auto) 1, Neutrophils # (Auto) 3.9, Lymphocytes # (Auto) 0.9L, Monocytes # (Auto) 0.8, Eosinophils # (Auto) 0.2, Basophils # (Auto) 0.0, Sodium Level 140, Potassium Level 4.0, Chloride Level 109H, Carbon Dioxide Level 22, Anion Gap 9, Blood Urea Nitrogen 9, Creatinine 0.83, Estimat Glomerular Filtration Rate > 60, BUN/ Creatinine Ratio 11, Glucose Level 89, Calcium Level 8.6, Corrected Calcium 8.9 , Phosphorus Level 3.7, Magnesium Level 2.2, Total Bilirubin 0.8, Aspartate Amino Transf (AST/SGOT) 32, Alanine Aminotransferase (ALT/SGPT) 60H, Alkaline Phosphatase 88, Total Protein 6.5, Albumin 3.6 Microbiology 10/15/18 MRSA Screen - Final, Complete MRSA not isolated Patient resulted labs reviewed. Pending Labs Imaging: Reviewed Imaging Report Discussion & Recommendations Discharge Planning: >30 minutes discharge planning Discharge Home Medications: Active Scripts Active Metoprolol Tartrate 50 Mg Tablet 100 Mg PO BID Amiodarone HCl 200 Mg Tablet 400 Mg PO BID Reported Pantoprazole Sodium 40 Mg Tablet.dr 40 Mg PO DAILY Instructions to patient/family Please see electronic discharge instructions given to patient. Clinical Quality Measures AMI/AHF: ASA po Prior to arrival: No DVT/VTE Risk/Contraindication: Risk Factor Score Per Nursin RFS Level Per Nursing on Admit: 3=High Copy Copies To 1: DODIE MANN DO Problem Qualifiers (1) Acute respiratory failure: Respiratory failure complication: hypoxia Qualified Codes: J96.01 - Acute respiratory failure with hypoxia (2) Sleep apnea: Sleep apnea type: unspecified type Qualified Codes: G47.30 - Sleep apnea, unspecified SANDEE,KAL M MD Oct 18, 2018 07:47
--- NOTE | 2018-10-18 08:49 | Diagnostic Imaging Report ---
INDICATION: Pacemaker placement. TIME OF EXAM: 3:43 AM Correlation is made with prior study from one day earlier. FINDINGS: Cardiac defibrillator remains in place. The heart size is stable. Congestive changes have improved. There is some elevation of right hemidiaphragm. No infiltrate, effusion or pneumothorax is seen. Right IJ line has tip overlying the SVC. IMPRESSION: Improvement in congestive changes. No acute feature is seen. Dictated by: Dictated on workstation # [id number]
--- NOTE | 2018-10-18 12:42 | Cardiology Progress Note ---
Cardiology SOAP Progress Note Subjective: No Cardiac symptoms. Objective: I&O/Vital Signs 10/18/18 10/18/18 10/18/18 10/18/18 01:42 03:05 03:10 03:29 Temp 97.2 Pulse 52 51 Resp 25 22 B/P (MAP) 137/79 (98) 131/95 (107) Pulse Ox 95 97 97 99 O2 Delivery Nasal Cannula Nasal Cannula Nasal Cannula Room Air O2 Flow Rate 2.00 2.00 2.00 2.00 10/18/18 10/18/18 10/18/18 10/18/18 04:09 05:05 06:00 07:00 Pulse 62 51 54 49 Resp 25 10 21 20 B/P (MAP) 148/95 (112) 128/79 (95) 121/74 (90) 117/92 (100) Pulse Ox 95 96 94 O2 Delivery Nasal Cannula Nasal Cannula Nasal Cannula Nasal Cannula O2 Flow Rate 2.00 2.00 2.00 2.00 10/18/18 10/18/18 10/18/18 10/18/18 07:00 07:57 08:00 08:00 Pulse 68 56 Resp 9 B/P (MAP) 139/96 (110) Pulse Ox 98 97 O2 Delivery Nasal Cannula Nasal Cannula Nasal Cannula O2 Flow Rate 2.00 2.00 2.00 10/18/18 10/18/18 10/18/18 10/18/18 09:00 10:00 11:00 11:42 Pulse 64 66 64 Resp 20 26 15 B/P (MAP) Pulse Ox 95 O2 Delivery Nasal Cannula Nasal Cannula Nasal Cannula Room Air O2 Flow Rate 2.00 2.00 2.00 10/18/18 00:00 Intake Total 660 ml Output Total 2055 ml Balance -1395 ml Weight (Pounds): 244 Weight (Ounces): 0.0 Weight (Calculated Kilograms): 110.884198 Constitutional: appears stated age, AAO x 3; No apparent distress; well- developed, well-nourished Respiratory: chest is bilaterally symmetric, lungs clear to auscultation Cardiovascular: regular rate-rhythm, S1 and S2, systolic murmur (faint LORENA at card base) Gastrointestional: No tender, No soft, No round, No distended, No pulsatile mass, No organomegaly, No guarding, No rebound, No tenderness, No hernia, No mass; audible bowel sounds; No abnormal bowel sounds, No abdominal bruits, No spleenomegaly, No other Extremities: No normal range of motion, No non-tender, No normal inspection, No pedal edema, No calf tenderness, No normal capillary refill, No pelvis stable , No calf tenderness, No inflammation, No pedal edema, No slow capillary refill , No swelling, No other, No abrasion, No clubbing, No cyanosis, No ecchymosis, No laceration, No no lower extremity edema bilateral, No significant edema, No tenderness, No wound Neurologic/Psychiatric: no motor/sensory deficits, alert, normal mood/affect, oriented x 3, power is 5/5 both on sides Skin: No rash on exposed areas, No ulcerations on exposed areas Results/Procedures: Labs Laboratory Tests 10/18/18 03:00: White Blood Count 5.7, Red Blood Count 4.62, Hemoglobin 14.4, Hematocrit 40, Mean Corpuscular Volume 86, Mean Corpuscular Hemoglobin 31, Mean Corpuscular Hemoglobin Concent 37H, Red Cell Distribution Width 13.1, Platelet Count 167, Mean Platelet Volume 10.3, Neutrophils (%) (Auto) 67, Lymphocytes (%) (Auto) 15 , Monocytes (%) (Auto) 15H, Eosinophils (%) (Auto) 3, Basophils (%) (Auto) 1, Neutrophils # (Auto) 3.9, Lymphocytes # (Auto) 0.9L, Monocytes # (Auto) 0.8, Eosinophils # (Auto) 0.2, Basophils # (Auto) 0.0, Sodium Level 140, Potassium Level 4.0, Chloride Level 109H, Carbon Dioxide Level 22, Anion Gap 9, Blood Urea Nitrogen 9, Creatinine 0.83, Estimat Glomerular Filtration Rate > 60, BUN/ Creatinine Ratio 11, Glucose Level 89, Calcium Level 8.6, Corrected Calcium 8.9 , Phosphorus Level 3.7, Magnesium Level 2.2, Total Bilirubin 0.8, Aspartate Amino Transf (AST/SGOT) 32, Alanine Aminotransferase (ALT/SGPT) 60H, Alkaline Phosphatase 88, Total Protein 6.5, Albumin 3.6 Microbiology 10/15/18 MRSA Screen - Final, Complete MRSA not isolated A/P: Assessment/Dx: Sustained monomorphic VT, Cardiogenic shock Plan: Close examination of the EKG demonstrates monomorphic sustained ventricular tachycardia. Right-sided inferior posterior origin. Could be originating from the RV. Change to PO amiodarone and PO metoprolol. he will be discharged on amiodarone 400 mg twice a day. Metoprolol 100 mg twice a day. Keep potassium over 4, magnesium over 2. Echocardiogram. Coronary angiography showed patent epicardial coronary arteries. ICD done yesterday. Device interrogation this morning showed normal ICD function. Patient once stable will likely require EP study and possible VT ablation. Cardiogenic shock: Resolved. Echocardiogram shows normal LV function. Patient will follow-up in cardiology in 2 weeks. Thank you for your consultation. Please call me if you have any questions. Penny Sinclair MD, FACP, FACC, FSCAI, [facility], CCDS Interventional Cardiology Cardiac Electrophysiology Vascular Medicine and Endovascular Interventions Focused Exam Lactate Level 10/15/18 15:48: Lactic Acid Level 1.13 Clinical Quality Measures AMI/AHF: ASA po Prior to arrival: Helio Swartz MD Oct 18, 2018 12:42 pm
== END 2018-10-18 12:30 | disposition home or self-care (01) | DRG 224 ==
LOC: EDUNIT# 09:43 → ER 09:44 → ICU 13:10
PROVIDERS: ADMIT Family Medicine; ATTEND Family Medicine
PROC: 5A2204Z Restoration of Cardiac Rhythm, Single (ICD-10-PCS; 2018-10-15)
PROC: 5A1935Z Respiratory Ventilation, Less than 24 Consecutive Hours (ICD-10-PCS; 2018-10-15)
PROC: 4A023N7 Measurement of Cardiac Sampling and Pressure, Left Heart, Percutaneous Approach (ICD-10-PCS; 2018-10-16)
PROC: B2111ZZ Fluoroscopy of Multiple Coronary Arteries using Low Osmolar Contrast (ICD-10-PCS; 2018-10-16)
PROC: B2151ZZ Fluoroscopy of Left Heart using Low Osmolar Contrast (ICD-10-PCS; 2018-10-16)
PROC: 02HK3KZ Insertion of Defibrillator Lead into Right Ventricle, Percutaneous Approach (ICD-10-PCS; principal; 2018-10-17)
PROC: 0JH638Z Insertion of Defibrillator Generator into Chest Subcutaneous Tissue and Fascia, Percutaneous Approach (ICD-10-PCS; 2018-10-17)
DX: I47.2 Ventricular tachycardia (principal); R57.0 Cardiogenic shock; J96.01 Acute respiratory failure with hypoxia; K72.00 Acute and subacute hepatic failure without coma; G47.33 Obstructive sleep apnea (adult) (pediatric); I10 Essential (primary) hypertension
CPT/HCPCS: 31500; 33249; 36415; 36600; 51702; 71045; 80048; 80053; 80306; 81000; 82805; 82962; 83605; 83735; 83874; 83880; 84100; 84484; 85025; 85027; 85610; 85730; 87070; 87081; 87205; 92960; 93005; 93041; 93306; 93308; 93458; 93641; 94002; 94003; 94640; 96361; 96365; 96366; 96367; 96375; 99291; 99292

== ENCOUNTER 2018-10-18 19:49 | Outpatient (CLI) | payer BC ==
[~2018-10-18 19:49] MED LIST: AMIO200T4 PO; DILT240C PO; METO50TA15 PO; PANT40TA3 PO
== END 2018-10-19 06:41 | disposition home or self-care (01) ==
LOC: SLEEP 19:49
PROVIDERS: ATTEND Internal Medicine Critical Care Medicine
DX: G47.33 Obstructive sleep apnea (adult) (pediatric) (principal); G47.10 Hypersomnia, unspecified; I49.9 Cardiac arrhythmia, unspecified; Z95.0 Presence of cardiac pacemaker
CPT/HCPCS: 95811

== ENCOUNTER → 2018-12-16 | Outpatient (CLI) | payer BC ==
[~2018-12-16] MED LIST changes: +RT-ALBUTEROL SULF 2.5 MG/3 ML PRE-MIX VIAL INH ONE
== END ==
LOC: RT 15:06
PROVIDERS: ATTEND Nurse Practitioner Family
DX: R06.00 Dyspnea, unspecified (principal); J30.9 Allergic rhinitis, unspecified; R06.89 Other abnormalities of breathing; R05 Cough; G47.33 Obstructive sleep apnea (adult) (pediatric)
CPT/HCPCS: 94060; 94726; 94729